=== PATIENT | female | born 1965 | race Caucasian/White ===

== ENCOUNTER → 2018-06-29 | Outpatient (CLI) | payer MEDICAID ==
--- NOTE | 2018-06-29 10:53 | Diagnostic Imaging Report ---
INDICATION: Routine screening. COMPARISON: No prior mammograms are available for comparison. TECHNIQUE: 2D and 3D bilateral screening mammography was performed with CAD. FINDINGS: Both breasts are heterogeneously dense, limiting the sensitivity of mammography. Circumscribed nodules are identified in both breasts, consistent with benign etiology. Occasional benign calcifications are noted. No spiculated mass or malignant appearing microcalcifications are seen. IMPRESSION: No mammographic features suspicious for malignancy are identified. ACR BI-RADS Category 2: Benign findings. Result letter will be mailed to the patient. Note: At least 10% of breast cancer is not imaged by mammography. Dictated by: Dictated on workstation # [id number]
== END ==
LOC: RAD 08:38
PROVIDERS: ATTEND Nurse Practitioner Primary Care
DX: Z12.31 Encounter for screening mammogram for malignant neoplasm of breast (principal)
CPT/HCPCS: 77067

== ENCOUNTER 2019-02-19 15:09 | Emergency (ER) | payer MEDICAID ==
[~2019-02-19] VITALS: Ht 175 cm; Wt 88.6 kg
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
[2019-02-19 16:43] VITALS: BP 136/84
== END 2019-02-19 16:45 | disposition home or self-care (01) ==
LOC: EDUNIT# 15:09 → ER 15:10
DX: S06.0X0A Concussion without loss of consciousness, initial encounter (principal); R40.2142 Coma scale, eyes open, spontaneous, at arrival to emergency department; R40.2252 Coma scale, best verbal response, oriented, at arrival to emergency department; R40.2362 Coma scale, best motor response, obeys commands, at arrival to emergency department; Z90.49 Acquired absence of other specified parts of digestive tract; W22.8XXA Striking against or struck by other objects, initial encounter
CPT/HCPCS: 99283

== ENCOUNTER 2020-02-27 14:12 | Emergency (ER) | payer MEDICAID ==
[~2020-02-27] VITALS: Ht 175 cm; Wt 90.0 kg
[2020-02-27] MEDS ORDERED: LISI-556 (14:49)
[2020-02-27] MEDS ORDERED: CETI-240 (14:49)
[2020-02-27] MEDS ORDERED: FLUO40CA (14:49)
[2020-02-27] MEDS ORDERED: ARIP5TAB57 (14:49)
[2020-02-27] MEDS ORDERED: ATOR40TA70 (14:49)
[2020-02-27] MEDS ORDERED: CYCL10TA9 (14:49)
[2020-02-27] MEDS ORDERED: FLUO20CA46 (14:49)
[2020-02-27] MEDS ORDERED: FAMO20TA5 (14:49)
[2020-02-27] MEDS ORDERED: CETI10TA17 (14:49)
--- NOTE | 2020-02-27 15:14 | ED Lower Extremity ---
General Chief Complaint: Lower Extremity Stated Complaint: L ANKLE INJ Nursing Triage Note: PT TO ED W/ C/O LT ANKLE PAIN ONSET AFTER STEPPING IN A HOLE IN HER YARD AT HOME. REPORTS SHE FELT A "POP". NO OTHER C/O VOICED. Nursing Sepsis Screen: No Definite Risk History of Present Illness Date Seen by Provider: Feb 27, 2020 Time Seen by Provider: 15:14 Initial Comments 54-year-old female presents to the emergency room with a chief complaint of left foot pain and some anesthesia over the lateral aspect and dorsum of her left foot. Patient states that she stepped in a hole and heard a snap or a pop in the area of her foot. She states she has had previous injury to this foot and ankle in the past. She has never required surgery. Patient also complains of a little bit of pain and discomfort over the lateral proximal fibular head. She states that it feels "numb". Patient states that when she fell she went forward on both of her knees and she is concerned that she might of broken something in her knee as well. All other review of systems reviewed and negative except as stated. Onset: just prior to arrival Pain/Injury Location: left leg Method of Injury: fell Allergies and Home Medications Allergies Coded Allergies: prednisone (Unverified Allergy, Unknown, 02/27/20) Patient Home Medication List Home Medication List Reviewed: Yes Review of Systems Constitutional: no symptoms reported EENTM: no symptoms reported Respiratory: no symptoms reported Cardiovascular: no symptoms reported Gastrointestinal: no symptoms reported Genitourinary: no symptoms reported : No Musculoskeletal: joint pain (pain in the bottom of the left foot and lateral aspect of the left knee) Skin: no symptoms reported All Other Systems Reviewed Negative Unless Noted: Yes Past Eypevdr-Zvmfxe-Xdkrwv Hx Patient Social History Alcohol Use: Denies Use Recreational Drug Use: No Smoking Status: Never a Smoker 2nd Hand Smoke Exposure: No Recent Foreign Travel: No Contact w/Someone Who Travel: No Recent Infectious Disease Expo: No Recent Hopitalizations: No Physical Abuse: No Sexual Abuse: No Mistreated: No Fear: No Seasonal Allergies Seasonal Allergies: No Past Medical History Surgeries: Yes (cervical spine, colonoscopy, wrist) Appendectomy, Gallbladder, Orthopedic Cardiac: Yes Heart Murmur Neurological: No Genitourinary: No Gastrointestinal: No Musculoskeletal: No Endocrine: No HEENT: No Cancer: No Psychosocial: No Integumentary: No Physical Exam Vital Signs Vital Signs - First Documented 02/27/20 14:17 Temp 36.8 Pulse 89 Resp 18 B/P (MAP) 151/95 (113) Pulse Ox 97 O2 Delivery Room Air Capillary Refill : Less Than 3 Seconds Height, Weight, BMI Height: '" Weight: lbs. oz. kg; 29.00 BMI Method: General Appearance: WD/WN, no apparent distress Neck: full range of motion Cardiovascular: regular rate, rhythm Respiratory: normal breath sounds, no respiratory distress, no accessory muscle use Hips: bilateral hip non-tender, bilateral hip normal inspection, bilateral hip normal range of motion, bilateral hip no evidence of injury Legs: right leg non-tender, right leg normal inspection, right leg normal range of motion, right leg no evidence of injury; left leg abrasions Knees: bilateral knee non-tender, bilateral knee normal inspection, bilateral knee normal range of motion, bilateral knee no evidence of injury Ankles: bilateral ankle non-tender, bilateral ankle normal inspection, bilateral ankle normal range of motion, bilateral ankle no evidence of injury Feet: left foot bone tenderness (Patient has pain and tenderness to palpation in the area of the base of the fifth metatarsal. She has overlying swelling.), left foot limited range of motion Neurologic/Tendon: normal sensation, normal motor functions, normal tendon functions Neurologic/Psychiatric: no motor/sensory deficits, alert, normal mood/affect, oriented x 3 Skin: normal color, warm/dry Progress/Results/Core Measures Results/Orders My Orders Orders - SEAN PIZANO MD Foot, Left, 3 Views (02/27/20 15:14) Knee, Left, 3 Views (02/27/20 16:16) Vital Signs/I&O 02/27/20 02/27/20 14:17 17:20 Temp 36.8 Pulse 89 0 Resp 18 0 B/P (MAP) 151/95 (113) 0/0 Pulse Ox 97 0 O2 Delivery Room Air Blood Pressure Mean: 113 Progress Progress Note : Time: 16:44 Progress Note 54-year-old female presents to the emergency department today with a chief complaint of left foot pain after stepping in a hole. 3 views of the left foot as well as the left knee were obtained. Radiology reads these as negative. However secondary to the pain at the base of her fifth metatarsal I am going to go ahead and put her in a Reinoso dressing and make her toe-touch weightbearing as tolerated and follow her up with orthopedics. The patient is comfortable with this plan of care she verbalized understanding of the discharge instructions and is stable for discharge Diagnostic Imaging Diagonstic Imaging: Xray Plain Films/CT/US/NM/MRI: other Comments [facility] [employer] [place], [place] NAME: BRUCE SAUCEDO [facility] REC#: [id number] PT STATUS: REG ER : 1965 PHYSICIAN: SEAN PIZANO MD ADMIT DATE: 02/27/20/ER Draft Date of Exam:02/27/20 FOOT, LEFT, 3 VIEWS INDICATION: Pain status post injury. COMPARISON: None. FINDINGS: Three views of the left foot demonstrate no acute fracture or dislocation. There are no focal osseous lesions. There is no soft tissue swelling. Joint spaces are well maintained. Triangular-shaped radiopaque foreign body is seen projecting over the plantar soft tissues of the proximal great toe. IMPRESSION: 1. No acute fractures or dislocations of the left foot. 2. Radiopaque foreign body projecting over the great toe as above. This could represent small shard of glass. Clinical correlation is recommended. Dictated on workstation # [id number] Dict: 02/27/20 1610 Trans: 02/27/20 161 [facility] [id number] Interpreted by: ENEDINA JERONIMO MD Electronically signed by: [facility] [employer] [place], [place] NAME: BRUCE SAUCEDO [facility] REC#: [id number] PT STATUS: REG ER : 1965 PHYSICIAN: SEAN PIZANO MD ADMIT DATE: 02/27/20/ER Draft Date of Exam:02/27/20 KNEE, LEFT, 3 VIEWS INDICATION: Knee pain status post injury. COMPARISON: None. FINDINGS: Three views of the left knee joint demonstrate no acute fracture or dislocation. No focal osseous lesions are seen. No significant joint effusion is seen. The surrounding soft tissue structures are unremarkable. There are no radiopaque foreign bodies. IMPRESSION: 1. No acute fractures or dislocations of the left knee joint. Dictated on workstation # [id number] Dict: 02/27/20 1624 Trans: 02/27/20 1628 [facility] [id number] Interpreted by: ENEDINA JERONIMO Departure Impression Primary Impression: Contusion of foot Qualified Codes: S90.32XA - Contusion of left foot, initial encounter Additional Impression: Foot pain, left Disposition: 01 HOME, SELF-CARE Condition: Stable Departure-Patient Inst. Decision time for Depature: 16:48 Referrals: [facility] (PCP/Family) Primary Care Physician FREDA MARTINEZ MD Patient Instructions: Foot Fracture (DC) Add. Discharge Instructions: Elevate your foot to decrease the swelling. You can take [id number] ibuprofen or Tylenol as needed for pain and swelling. Keep the dressing in place until you follow-up with Dr. MARTINEZ with orthopedics. Please use the crutches with toe-touch weightbearing as tolerated. Return to the emergency department for any new, worsening concerns or symptoms. All discharge instructions reviewed with patient and/or family. Voiced understanding. Copy Copies To 1: FREDA MARTINEZ MD, KATHRYN M MD Feb 27, 2020 15:14
--- NOTE | 2020-02-27 16:13 | Diagnostic Imaging Report ---
INDICATION: Pain status post injury. COMPARISON: None. FINDINGS: Three views of the left foot demonstrate no acute fracture or dislocation. There are no focal osseous lesions. There is no soft tissue swelling. Joint spaces are well maintained. Triangular-shaped radiopaque foreign body is seen projecting over the plantar soft tissues of the proximal great toe. IMPRESSION: 1. No acute fractures or dislocations of the left foot. 2. Radiopaque foreign body projecting over the great toe as above. This could represent small shard of glass. Clinical correlation is recommended. Dictated by: Dictated on workstation # [id number]
--- NOTE | 2020-02-27 16:28 | Diagnostic Imaging Report ---
INDICATION: Knee pain status post injury. COMPARISON: None. FINDINGS: Three views of the left knee joint demonstrate no acute fracture or dislocation. No focal osseous lesions are seen. No significant joint effusion is seen. The surrounding soft tissue structures are unremarkable. There are no radiopaque foreign bodies. IMPRESSION: 1. No acute fractures or dislocations of the left knee joint. Dictated by: Dictated on workstation # [id number]
[2020-02-27 17:20] VITALS: BP 0/0
--- NOTE | 2020-02-27 17:20 | NUR ---
PT DISCHARGED TO HOME BY MARCY STEVENS.
== END 2020-02-27 17:26 | disposition home or self-care (01) ==
LOC: EDUNIT# 14:12 → ER 14:14
DX: S90.32XA Contusion of left foot, initial encounter (principal); Z88.8 Allergy status to other drugs, medicaments and biological substances; W18.42XA Slipping, tripping and stumbling without falling due to stepping into hole or opening, initial encounter
CPT/HCPCS: 73562; 73630

== ENCOUNTER 2020-04-03 14:47 | Emergency (ER) | payer MEDICAID ==
[~2020-04-03] VITALS: Ht 175 cm; Wt 102.0 kg
[~2020-04-03 14:47] MED LIST: ARIP5TAB57; ATOR40TA70; CETI-240; CETI10TA17; CYCL10TA9; FAMO20TA5; FLUO20CA46; FLUO40CA; LISI-556
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
[2020-04-03] MEDS ORDERED: METH4TAB10 PO (15:19)
[2020-04-03 15:28] VITALS: BP 182/85
== END 2020-04-03 15:28 | disposition home or self-care (01) ==
LOC: EDUNIT# 14:47 → ER 14:48
DX: G51.0 Bell's palsy (principal); Z88.8 Allergy status to other drugs, medicaments and biological substances
CPT/HCPCS: 99283

== ENCOUNTER 2020-05-25 12:24 | Emergency (ER) | payer MEDICAID ==
[~2020-05-25] VITALS: Ht 175 cm; Wt 94.8 kg
[~2020-05-25 12:24] MED LIST changes: +METH4TAB10 PO
[2020-05-25] MEDS ORDERED: HOLD METFORMIN - RECEIVED CONTRAST 20 ML VIAL IV SCH (13:30)
[2020-05-25] MEDS ORDERED: IOHEXOL 350 MG/ML 100 ML (OMNIPAQUE 350) VIAL IV ONE (13:30)
[2020-05-25] MEDS ORDERED: NS 100 ML (IVPB) BAG IV ONE (13:30)
[2020-05-25 13:34] LABS: BASOPHILS # (AUTO) 0.1 10^3/uL (0.0-0.1); BASOPHILS % (AUTO) 1 % (0-10); EOSINOPHILS # (AUTO) 0.2 10^3/uL (0.0-0.3); EOSINOPHILS % (AUTO) 2 % (0-10); HEMATOCRIT 44 % (35-52); HEMOGLOBIN 14.9 g/dL (11.5-16.0); LYMPHOCYTES # (AUTO) 2.3 10^3/uL (1.0-4.0); LYMPHOCYTES % (AUTO) 24 % (12-44); MEAN CORPUSCULAR HEMOGLOBIN 32 pg (25-34); MEAN CORPUSCULAR HGB CONC 34 g/dL (32-36); MEAN CORPUSCULAR VOLUME 96 fL (80-99); MEAN PLATELET VOLUME 9.3 fL (9.0-12.2); MONOCYTES # (AUTO) 0.7 10^3/uL (0.0-1.0); MONOCYTES % (AUTO) 7 % (0-12); NEUTROPHILS # (AUTO) 6.5 10^3/uL (1.8-7.8); NEUTROPHILS % (AUTO) 66 % (42-75); PLATELET COUNT 345 10^3/uL (130-400); WHITE BLOOD COUNT 9.8 10^3/uL (4.3-11.0)
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
[2020-05-25 13:47] LABS: ALBUMIN 4.5 GM/DL (3.2-4.5)
[2020-05-25 13:48] LABS: CHLORIDE 104 MMOL/L (98-107); POTASSIUM 4.6 MMOL/L (3.6-5.0); SODIUM 136 MMOL/L (135-145)
[2020-05-25 13:49] LABS: CALCIUM 9.6 MG/DL (8.5-10.1)
[2020-05-25 13:50] LABS: GLUCOSE 108 MG/DL (70-105); TOTAL PROTEIN 8.5 GM/DL (6.4-8.2)
[2020-05-25 13:51] LABS: CARBON DIOXIDE 22 MMOL/L (21-32)
[2020-05-25 13:52] LABS: BILIRUBIN,TOTAL 0.4 MG/DL (0.1-1.0)
[2020-05-25 13:53] LABS: ALKALINE PHOSPHATASE 125 U/L (40-136); CREATININE SERUM 0.78 MG/DL (0.60-1.30); GFR ESTIMATED > 60
--- NOTE | 2020-05-25 13:54 | Diagnostic Imaging Report ---
EXAMINATION: CT head without contrast. TECHNIQUE: Multiple contiguous axial images were obtained through the brain without the use of intravenous contrast. All CT scans use one or more of the following dose optimizing techniques: automated exposure control, MA and/or KvP adjustment based on a patient size and exam type, or iterative reconstruction. HISTORY: Headache. Blurry vision. Left-sided numbness. Concern for stroke. COMPARISON: None available. FINDINGS: No large acute territorial ischemia, mass, or hemorrhage. No midline shift or mass effect. The ventricles, cortical sulci, and basilar cisterns are patent and unremarkable. The orbits are normal. Paranasal sinuses are normal. Mastoid air cells are clear. No soft tissue abnormality is seen. No osseous lesions or fractures are seen. IMPRESSION: 1. No large acute territorial ischemia, mass, or hemorrhage. Dictated by: Dictated on workstation # [id number]
[2020-05-25 13:55] LABS: BUN/CREATININE RATIO 17
[2020-05-25 13:56] LABS: ALANINE AMINOTRANSFERASE 55 U/L (0-55)
--- NOTE | 2020-05-25 14:03 | Diagnostic Imaging Report ---
EXAMINATION: Chest, 1 view. HISTORY: Stroke protocol. COMPARISON: None available. FINDINGS: The heart size and pulmonary vasculature are normal. The lungs are clear without consolidation, pleural effusion, or pneumothorax. The osseous structures are intact. Partially visualized cervical fusion hardware is present. IMPRESSION: No acute radiographic abnormality in the chest. Dictated by: Dictated on workstation # [id number]
[2020-05-25 14:06] LABS: FIBRIN DEGRADATION PRODUCTS < 0.27 UG/ML (0.00-0.49); INR 0.9 (0.8-1.4); PARTIAL THROMBOPLASTIN TIME 26 SEC (24-35); PROTHROMBIN TIME PATIENT 12.9 SEC (12.2-14.7)
--- NOTE | 2020-05-25 14:17 | Diagnostic Imaging Report ---
PROCEDURE: CT angiography of the head and CT angiography of the neck with and without contrast. TECHNIQUE: Contiguous noncontrast images were obtained from the skull base through the vertex. After intravenous contrast administration, helical CT angiography of the neck was performed. Source data was reformatted into 3D MIP projections. Delayed post contrast acquisition was also obtained. Auto Exposure Controls were utilized during the CT exam to meet ALARA standards for radiation dose reduction. INDICATION: Left-sided numbness, headache, and blurred vision. COMPARISON: Correlation is made with head CT performed earlier the same day. FINDINGS: Delayed post contrast images are without abnormal enhancing lesion. CT angiographic portion of the study demonstrates a normal three-vessel branching pattern to the aortic arch. Both common carotid arteries appear to be widely patent. Carotid bifurcations are unremarkable. The right internal carotid artery and carotid siphon are unremarkable. Left internal carotid artery and left carotid siphon are unremarkable. The M1 and M2 segments of the middle cerebral arteries bilaterally appear to be patent. No large territorial occlusion is detected. The right and left anterior cerebral arteries appear to be patent. Right and left posterior cerebral arteries are patent. The basilar artery is patent. The left vertebral artery is dominant. The right vertebral artery is very small but both vertebral arteries do appear to be patent. IMPRESSION: Unremarkable CT angiogram of the head and neck. No thromboembolism or large branch occlusion is identified. Dictated by: Dictated on workstation # [id number]
[2020-05-25] MEDS ORDERED: NS IV 500 ML 500 ML IV ONE (15:15)
[2020-05-25] MEDS ORDERED: KETOROLAC 30 MG/ML VIAL IVP ONE (15:15)
[2020-05-25 16:20] VITALS: BP 107/69
== END 2020-05-25 16:20 | disposition home or self-care (01) ==
LOC: EDUNIT# 12:24 → ER 12:26
DX: R51.9 Headache, unspecified (principal); R20.0 Anesthesia of skin; H53.9 Unspecified visual disturbance; Z77.22 Contact with and (suspected) exposure to environmental tobacco smoke (acute) (chronic); Z88.8 Allergy status to other drugs, medicaments and biological substances; Z20.828 Contact with and (suspected) exposure to other viral communicable diseases; Z79.52 Long term (current) use of systemic steroids
CPT/HCPCS: 70450; 70496; 70498; 71045; 80053; 84484; 84703; 85025; 85379; 85610; 85730; 93005; 93041; 99284; U0002; 36415; 87635

== ENCOUNTER 2020-11-26 06:34 | Outpatient (CLI) | payer MEDICAID ==
[~2020-11-26] VITALS: Ht 175.3 cm; Wt 101.9 kg
[~2020-11-26 06:34] MED LIST changes: -LISI-556; +LISI-729
[2020-11-30] MEDS ORDERED: LISI1TAB29 PO (14:20)
[2020-11-30] MEDS ORDERED: MAGN400T39 PO (14:20)
[2020-11-30] MEDS ORDERED: ARIP10TA55 PO (14:20)
[2020-11-30] MEDS ORDERED: BUPR150T24 PO (14:20)
[2020-11-30] MEDS ORDERED: CELE-63 PO (14:20)
== END 2020-11-30 15:14 | disposition home or self-care (01) ==
LOC: PREOP 06:34
PROVIDERS: ATTEND Surgery
DX: Z01.818 Encounter for other preprocedural examination (principal)

== ENCOUNTER 2020-12-01 19:43 | Emergency (ER) | payer MEDICAID ==
[~2020-12-01] VITALS: Ht 175.2 cm; Wt 100.0 kg
[~2020-12-01 19:43] MED LIST changes: +ARIP10TA55 PO; +BUPR150T24 PO; +CELE-63 PO; +LISI1TAB29 PO; +MAGN400T39 PO
[2020-12-01 20:38] VITALS: BP 147/95
--- NOTE | 2020-12-01 20:44 | ED Lower Extremity ---
General Chief Complaint: Lower Extremity Stated Complaint: L FOOT INJURY Source: patient Exam Limitations: no limitations History of Present Illness Date Seen by Provider: Dec 01, 2020 Time Seen by Provider: 20:43 Initial Comments To ER with left lateral foot and ankle pain after she twisted it while getting out of the van earlier this afternoon. Onset: just prior to arrival Severity: moderate Pain/Injury Location: left foot Method of Injury: twisted Modifying Factors: Improves With Movement Allergies and Home Medications Allergies Coded Allergies: prednisone (Unverified Adverse Reaction, Unknown, 04/03/20) makes her 'angry' Home Medications Aripiprazole 10 Mg Tablet, 10 MG PO DAILY, (Reported) Bupropion HCl 150 Mg Tab.er.24h, 150 MG PO DAILY, (Reported) Celecoxib 200 Mg Capsule, 200 MG PO DAILY, (Reported) Lisinopril/Hydrochlorothiazide 1 Each Tablet, 1 EACH PO DAILY, (Reported) Magnesium Oxide 400 Mg Tablet, 400 MG PO DAILY, (Reported) Patient Home Medication List Home Medication List Reviewed: Yes Review of Systems Constitutional: see HPI EENTM: see HPI Respiratory: no symptoms reported Cardiovascular: no symptoms reported Genitourinary: no symptoms reported Musculoskeletal: see HPI Skin: no symptoms reported Psychiatric/Neurological: No Symptoms Reported Past Sbjrphv-Yzplkp-Pyklhw Hx Seasonal Allergies Seasonal Allergies: No Past Medical History Surgeries: Yes (cervical spine, colonoscopy, wrist) Appendectomy, Gallbladder, Orthopedic Respiratory: No Cardiac: Yes Heart Murmur, Hypertension Neurological: No (bells palsy) Genitourinary: No Gastrointestinal: No Musculoskeletal: Yes Chronic Back Pain Endocrine: No HEENT: No Cancer: No Psychosocial: Yes Anxiety, Depression Integumentary: No Physical Exam Vital Signs Capillary Refill : Height, Weight, BMI Height: '" Weight: lbs. oz. kg; 30.00 BMI Method: General Appearance: WD/WN, no apparent distress HEENT: PERRL/EOMI, normal ENT inspection Respiratory: no respiratory distress, no accessory muscle use Hips: bilateral hip non-tender, bilateral hip normal inspection, bilateral hip normal range of motion Legs: bilateral leg non-tender, bilateral leg normal inspection, bilateral leg normal range of motion Knees: bilateral knee non-tender, bilateral knee normal inspection, bilateral knee normal range of motion Ankles: left ankle pain, left ankle soft tissue tenderness, left ankle swelling Feet: left foot pain, left foot soft tissue tenderness, left foot swelling Neurologic/Psychiatric: alert, normal mood/affect, oriented x 3 Skin: normal color, warm/dry Progress/Results/Core Measures Results/Orders My Orders Orders - FLAKITA KING APRN Ankle, Left, 3 Views (12/01/20 20:42) Foot, Left, 3 Views (12/01/20 20:42) Departure Communication (Admissions) 2140-already has her own crutches. We will give her an Luis A wrap and discharge. Impression Primary Impression: Sprain and strain of ankle Disposition: 01 HOME, SELF-CARE Condition: Stable Departure-Patient Inst. Decision time for Depature: 21:23 Referrals: [facility] (PCP/Family) Primary Care Physician Patient Instructions: Ankle Sprain ED FLAKITA KING APRN Dec 01, 2020 20:44
--- NOTE | 2020-12-01 21:15 | Diagnostic Imaging Report ---
EXAMINATION: Left foot radiographs, 3 views. COMPARISON: February 27, 2020. HISTORY: Left foot and ankle pain after injury. FINDINGS: There is a radiopaque foreign body volarly located at the level of the first proximal phalanx unchanged since February 27, 2020. There is degenerative type calcaneal enthesopathy. There is degenerative type enthesopathy involving the dorsal aspect of the midfoot. There is no identified new radiopaque foreign body. 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 There is a small normal variant os navicularis. There is degenerative type enthesopathy at the insertion of the peroneus brevis. There is no identified acute fracture. IMPRESSION: 1. No identified acute bony abnormality of the left foot. Dictated by: Dictated on workstation # [id number]
--- NOTE | 2020-12-01 21:16 | Diagnostic Imaging Report ---
EXAMINATION: Left ankle radiographs, 3 views. COMPARISON: None. HISTORY: 55-year-old female, injury. Left foot and ankle pain. FINDINGS: There is degenerative type calcaneal enthesopathy and degenerative type enthesopathy at the dorsal aspect of the midfoot. The alignment of the ankle mortise is unremarkable. There is some productive bone formation in the region of the medial malleolus which may relate to sequela of prior injury. There is no identified acute fracture. IMPRESSION: No identified acute bony abnormality of the left foot. Dictated by: Dictated on workstation # [id number]
== END 2020-12-01 21:45 | disposition home or self-care (01) ==
LOC: EDUNIT# 19:43 → ER 19:45
DX: S93.402A Sprain of unspecified ligament of left ankle, initial encounter (principal); I10 Essential (primary) hypertension; G89.29 Other chronic pain; M54.9 Dorsalgia, unspecified; F41.9 Anxiety disorder, unspecified; F32.9 Major depressive disorder, single episode, unspecified; Z79.1 Long term (current) use of non-steroidal anti-inflammatories (NSAID); Z79.899 Other long term (current) drug therapy; X50.1XXA Overexertion from prolonged static or awkward postures, initial encounter
CPT/HCPCS: 73610; 73630

== ENCOUNTER 2020-12-03 13:23 | Day surgery (SDC) | payer MEDICAID ==
[~2020-12-03] VITALS: Ht 175.3 cm; Wt 100.0 kg
[2020-12-03] MEDS ORDERED: LACTATED RINGERS 1,000 ML IV STA (13:29)
[2020-12-03] MEDS ORDERED: LACTATED RINGERS 1,000 ML IV ONE (13:32)
[2020-12-03 13:52] VITALS: BP 154/100
[2020-12-03] MEDS ORDERED: proPOfol 200 MG/20 ML (DIPRIVAN) VIAL IV ONE (14:11)
[2020-12-03] MEDS ORDERED: MIDAZOLAM 2 MG/2 ML (VERSED) VIAL ONE (14:11)
--- NOTE | 2020-12-03 14:20 | Progress Note-Pre Operative ---
Pre-Operative Progress Note H&P Reviewed The H&P was reviewed, patient examined and no changes noted. Date Seen by Provider: Dec 03, 2020 Time Seen by Provider: 14:19 Date H&P Reviewed: Dec 03, 2020 Time H&P Reviewed: 14:19 Pre-Operative Diagnosis: screening colonoscopy THANH LEONE DO Dec 03, 2020 14:20
[2020-12-03] MEDS ORDERED: ESMOLOL 100 MG/10 ML (BREVIBLOC) VIAL ONE (14:40)
[2020-12-03 15:05] VITALS: BP_SYST 139; BP_SYST 145; BP_DIAS 60; BP_DIAS 75
--- NOTE | 2020-12-03 15:30 | Discharge Inst-Simple/Standard ---
Discharge Inst-Standard Patient Instructions/Follow Up Plan of Care/Instructions/FU: Follow up with your primary care provider in next 2 weeks for heart arrythmia. Daphney in 10 years for repeat colonoscopy, or 5 years if family history of colon cancer. If any issues before then be seen at that time. Activity as Tolerated: Yes Discharge Diet: Regular Diet THANH LEONE DO Dec 03, 2020 15:30
[2020-12-03 15:40] VITALS: BP 139/75
--- NOTE | 2020-12-03 19:04 | OPERATIVE REPORT ---
DATE OF SERVICE: 12/03/2020 PREOPERATIVE DIAGNOSIS: Screening colonoscopy. POSTOPERATIVE DIAGNOSIS: Normal colon. PROCEDURE PERFORMED: Colonoscopy. SURGEON: Thanh Shelley DO. ANESTHESIA: Per MDA. ESTIMATED BLOOD LOSS: None. COMPLICATIONS: None. INDICATIONS FOR PROCEDURE: The patient is a 55-year-old female needing screening colonoscopy. She understands the risks and benefits of the procedure and wished to proceed with the procedure. Consent was signed in the chart. DESCRIPTION OF PROCEDURE: The patient was taken to the endoscopy suite and placed in the left lateral recumbent position. A timeout was performed. The patient was having sinus rhythm with PACs/PSVTs, which did get better control with esmolol, so we proceeded. A digital rectal exam was performed. There were no palpable polyps, masses or ulcerations. Scope was inserted in the rectum, advanced all the way to cecum with minimal difficulty. Prep was adequate. Scope was then slowly retracted back. There were no polyps, masses or ulcerations within the cecum, ascending, transverse, descending and sigmoid colon. Once in the rectum, scope was retroflexed noting some internal hemorrhoids. No other pathology. Scope was returned to its normal position, slowly withdrawn until completely removed. The patient tolerated the procedure well without any complications. She was taken to the recovery room in stable condition. RECOMMENDATIONS: The patient will need repeat colonoscopy in 10 years. Any issues before that be seen at that time. If she has family history of colon cancer or personal history of colon polyps, she should have repeat colonoscopy in five years. The patient was found on 3-lead that, she was in sinus rhythm with times of PACs/PSVTs. We would recommend arranging with her primary care provider to be seen in the next 2 weeks. We will consider cardiology consultation. We will also get a 12-lead EKG here. Job ID: [id number] DocumentID: [id number] Dictated Date: 12/03/2020 15:36:36 [employer] Plant Site Manager Date: 12/03/2020 19:04:36 Dictated By: THANH SHELLEY DO
== END 2020-12-03 15:40 | disposition home or self-care (01) ==
LOC: ENDO 13:23
PROVIDERS: ATTEND Surgery
DX: Z12.11 Encounter for screening for malignant neoplasm of colon (principal); K64.8 Other hemorrhoids; I10 Essential (primary) hypertension; G51.0 Bell's palsy; J30.1 Allergic rhinitis due to pollen; F32.9 Major depressive disorder, single episode, unspecified; F41.9 Anxiety disorder, unspecified; Z90.49 Acquired absence of other specified parts of digestive tract; Z79.899 Other long term (current) drug therapy; Z90.89 Acquired absence of other organs; Z83.3 Family history of diabetes mellitus
CPT/HCPCS: 36415; 84703

== ENCOUNTER → 2021-01-28 | Outpatient (CLI) | payer MEDICAID ==
[2021-01-28 14:35] LABS: HEMATOCRIT 43 % (35-52); HEMOGLOBIN 14.7 g/dL (11.5-16.0); MEAN CORPUSCULAR HEMOGLOBIN 33 pg (25-34); MEAN CORPUSCULAR HGB CONC 34 g/dL (32-36); MEAN CORPUSCULAR VOLUME 96 fL (80-99); MEAN PLATELET VOLUME 9.3 fL (9.0-12.2); PLATELET COUNT 382 10^3/uL (130-400); WHITE BLOOD COUNT 7.9 10^3/uL (4.3-11.0)
[2021-01-28 15:14] LABS: ALBUMIN 4.4 GM/DL (3.2-4.5); BILIRUBIN,TOTAL 0.6 MG/DL (0.1-1.0); CALCIUM 9.7 MG/DL (8.5-10.1); CREATININE SERUM 0.86 MG/DL (0.60-1.30); POTASSIUM 3.7 MMOL/L (3.6-5.0)
== END ==
LOC: LAB 13:37
PROVIDERS: ATTEND Internal Medicine Cardiovascular Disease
DX: E78.2 Mixed hyperlipidemia (principal); R00.2 Palpitations
CPT/HCPCS: 36415; 80053; 80061; 84443; 85027

== ENCOUNTER → 2021-03-08 | Outpatient (CLI) | payer MEDICAID ==
[~2021-03-08] MED LIST changes: +meTOprolol 5 MG/5 ML (LOPRESSOR) VIAL IV ONE; +meTOprolol 5 MG/5 ML (LOPRESSOR) VIAL ONE
[2021-03-08 10:22] VITALS: BP 144/88
[2021-03-08 10:26] VITALS: BP 139/91
--- NOTE | 2021-03-08 11:10 | Cardiology Stress Test Report ---
Stress Test Report Date of Procedure/Referring: Date of Procedure: Mar 08, 2021 PCP Caty Solis MD Admitting Physician Center/[facility] Indications: Palpitation Baseline Heart Rate: 170 Baseline Blood Pressure: Blood Pressure Systolic: 139 Blood Pressure Diastolic: 91 Summary/Conclusion: Summary: Patient was scheduled for exercise stress test today, on arrival she was noted to have heart rate 170 at rest. She has underlying sinus rhythm on baseline, felt that she was having palpitations since this morning. Baseline EKG showed heart rate 170, narrow complex with variation in the rate suggestive of underlying atrial fibrillation or type III atrial flutter. On Valsalva maneuver patient converted to sinus rhythm. Return back to SVT with a regular rhythm again converted with Valsalva maneuver and started to have multiple short paroxysmal atrial tachycardia for 3-4 beats and occasional PVCs. No acute EKG changes suggestive of ischemia She was given 5 mg of IV Lopressor which stabilized her underlying rhythm. Test was terminated. Conclusion 1. Paroxysmal atrial fibrillation/flutter, noted at rest, patient was unable to exercise due to tachycardia. Converted on Valsalva maneuver then had 5 mg of IV Lopressor. 2. Patient was started on amiodarone 400 mg twice daily for 1 week then 200 mg twice daily 3. [id number] score 2, yearly risk of stroke without oral anticoagulation is 2.2%. Started on Eliquis 4. I am planning to evaluate Lexiscan stress test for possible switching her to class III antiarrhythmic medication CATY SOLIS MD Mar 08, 2021 11:10
== END ==
LOC: CARD 09:30
PROVIDERS: ATTEND Internal Medicine Cardiovascular Disease
DX: I49.9 Cardiac arrhythmia, unspecified (principal); I10 Essential (primary) hypertension; I25.10 Atherosclerotic heart disease of native coronary artery without angina pectoris
CPT/HCPCS: 93017; 93225; 93226; 93306

== ENCOUNTER → 2021-03-10 | Outpatient (CLI) | payer MEDICAID ==
[~2021-03-10] MED LIST changes: +AMIO200T6 PO; +APIX5TAB PO; +CATHETER FLUSH 10 ML SYR IV PRN; +METO-352 PO; +MTP25TSR PO; +MV-M1CAP15 PO; +NS IV 1000 ML 1,000 ML IV SCH; +NS IV 1000 ML 1,000 ML ONE; +OMEG-160 PO; +REGADENOSON 0.4 MG/5 ML SYR (LEXISCAN) IV ONE
[2021-03-10 13:30] VITALS: BP 144/95
--- NOTE | 2021-03-10 15:36 | Cardiology Stress Test Report ---
Stress Test Report Date of Procedure/Referring: Date of Procedure: Mar 10, 2021 Tisha Mo Admitting Physician Center/[facility] Indications: SVT Baseline Heart Rate: 86 Baseline Blood Pressure: Blood Pressure Systolic: 144 Blood Pressure Diastolic: 95 Baseline Vitals Vital Signs Date Time Temp Pulse Resp B/P (MAP) Pulse Ox O2 Delivery O2 Flow Rate FiO2 03/10/21 13:30 86 144/95 (111) Baseline EKG: Baseline EKG: NSR Summary After explaining the procedure to the patient, she signed a consent and then brought to the stress nuclear laboratory. Patient received 0.4 mg Lexiscan for stress test, ECG, heart rate and blood pressure were monitored continuously. Resting and stress dose of radio tracer were injected, imaging was acquired and reviewed in short axis, horizontal long axis and vertical long axis views. TID: 0.94 SSS: 10 SDS: 5 EF: 54 1. Patient tolerated Lexiscan well 2. Multiple episodes of paroxysmal atrial tachycardia with a rate up to 170, questionable short runs of atrial fibrillation with RVR. Patient had one short episode of wide-complex tachycardia for a total of 8 beats of nonsustained ventricular tachycardia. 3. Reversible ischemia involving the anterior wall and anterior septum 4. Normal left ventricular size, EF 54% CATY BLOUNT MD Mar 10, 2021 15:36
== END ==
LOC: CARD 12:45
PROVIDERS: ATTEND Physician Assistant
DX: I47.1 Supraventricular tachycardia (principal); I25.89 Other forms of chronic ischemic heart disease
CPT/HCPCS: 78452; 93017; A9502

== ENCOUNTER 2021-03-15 08:00 | Day surgery (SDC) | payer MEDICAID ==
[2021-03-15] VITALS (9 sets, daily range): BP systolic 129–166; BP diastolic 70–81
[~2021-03-15] VITALS: Ht 175 cm; Wt 96.0 kg
[2021-03-15 07:22] LABS: HEMATOCRIT 42 % (35-52); HEMOGLOBIN 14.1 g/dL (11.5-16.0); MEAN CORPUSCULAR HEMOGLOBIN 33 pg (25-34); MEAN CORPUSCULAR HGB CONC 34 g/dL (32-36); MEAN CORPUSCULAR VOLUME 98 fL (80-99); PLATELET COUNT 335 10^3/uL (130-400); WHITE BLOOD COUNT 12.5 10^3/uL (4.3-11.0)
[2021-03-15 07:36] LABS: INR 0.9 (0.8-1.4)
[2021-03-15 07:45] LABS: ALBUMIN 4.2 GM/DL (3.2-4.5); BILIRUBIN,TOTAL 0.4 MG/DL (0.1-1.0); CALCIUM 9.3 MG/DL (8.5-10.1); CREATININE SERUM 0.93 MG/DL (0.60-1.30); POTASSIUM 4.2 MMOL/L (3.6-5.0); TOTAL PROTEIN 7.9 GM/DL (6.4-8.2)
--- NOTE | 2021-03-15 07:46 | Diagnostic Imaging Report ---
INDICATION: Coronary artery disease COMPARISON: 05/25/2020 FINDINGS: Single view of the chest demonstrates clear lungs bilaterally. Heart is normal. There is no pneumothorax. There is a stable benign nodule in the right upper lobe. Osseous structures are age-appropriate. IMPRESSION: Negative chest Dictated by: Dictated on workstation # [id number]
[~2021-03-15 08:00] MED LIST changes: -CATHETER FLUSH 10 ML SYR IV PRN; +HEParin (CATH LAB) 2,000 ML IV ONE; +LIDOCAINE 1% INJ 20 ML 20 ML VIAL ONE; -METO-352 PO; -REGADENOSON 0.4 MG/5 ML SYR (LEXISCAN) IV ONE; -meTOprolol 5 MG/5 ML (LOPRESSOR) VIAL IV ONE; -meTOprolol 5 MG/5 ML (LOPRESSOR) VIAL ONE
[2021-03-15] MEDS ORDERED: VERAPAMIL 5 MG/2 ML (CALAN) VIAL IV ONE (08:03)
[2021-03-15] MEDS ORDERED: fentaNYL INJ 100 MCG/2 ML AMP ONE (08:03)
[2021-03-15] MEDS ORDERED: MIDAZOLAM 5 MG/5 ML (VERSED) VIAL ONE (08:04)
[2021-03-15] MEDS ORDERED: NITRO DRIP 25000 MCG/D5W 0 ML IV ONE (08:04)
[2021-03-15] MEDS ORDERED: HEParin 1000 UNIT/ML (10ML VIAL) FOR BOLUS ONE (08:04)
--- NOTE | 2021-03-15 09:03 | Conscious Sedation/ASA ---
Conscious Sedation Pre-Proced Time 09:02 ASA Score 3 For ASA 3 and 4: Consider anesthesia and medical clearance. Also, for patients with a history of failed moderate sedation consider anesthesia. Airway Lungs Heart ASA score ASA 1: a normal healthy patient ASA 2: a patient with a mild systemic disease (mid diabetes, controlled hypertension, obesity x ASA 3: a patient with a severe systemic disease that limits activity (angina, COPD, prior Myocardial infarction) ASA 4: a patient with an incapacitating disease that is a constant threat to life (CHF, renal failure) ASA 5: a moribund patient not expected to survive 24 hrs. (ruptured aneurysm) ASA 6: a declared brain- patient whose organs are being harvested. For emergent operations, add the letter E after the classification Mallampati Classification Grade 3 Sedation Plan Analgesia, Amnesia, Plan communicated to team members, Discussed options with patient/fam, Discussed risks with patient/fam The patient is an appropriate candidate to undergo the planned procedure, sedation, and anesthesia. The patient immediately re-assessed prior to indication. CATY BLOUNT MD Mar 15, 2021 09:03
[2021-03-15] MEDS ORDERED: METO-352 PO (09:41)
--- NOTE | 2021-03-15 09:42 | Discharge Inst-Post CATH ---
Discharge Inst-CATH/EP Problems Reviewed?: Yes Post Cardiac Cath/EP D/C Inst Follow Up/Plan Appointment with Dr. Solis's office in 2 to 4 weeks <b>CARDIAC CATH/EP PROCEDURE DISCHARGE INSTRUCTIONS</b> ACTIVITY * Go Home directly and rest. * Limit activity of the leg (or wrist if it was used) for 7 days including aer obics, swimming, jogging, bicycling, etc. * Restrict stair-climbing for 7 days if possible, if not, climb up with your non-cath leg, then bring together on the same step. * Avoid lifting, pushing, pulling or excessive movement of the affected extremi ty for 7 days. * Customary sexual activity may be resumed after 2 days-use caution not to use a position that strains or causes pain to the affected extremity. * No driving for 24 hours. * NO SMOKING. * Avoid straining for bowel movements for 7 days. * Gentle walking on level ground is allowed. * Returning to work will depend on the type of procedure and the results. Your doctor will discuss this with you. CALL YOUR DOCTOR FOR ANY OF THE FOLLOWING: *If bleeding from the puncture site occurs- Apply gentle pressure to site with clean cloth and call your doctor or EMS. * If a knot or lump forms under the skin, increases in size, or causes pain. * If bruising appears to be worsening or moving further down your leg instead of disappearing. * Temperature above 101 F. CARE OF YOUR GROIN INCISION; * Bruising or purple discoloration of the skin near the puncture site is common. * You may shower only, no bathtub bathing for 5 days. Be careful to avoid slipping as your leg may feel stiff. * If a closure device was used on your femoral artery, please see the attached guide regarding care of the device and your leg. * Leave dressing on FOR 24 hours. CARE OF YOUR WRIST INCISION; * Bruising or purple discoloration of the skin near the puncture site is common. * You may shower. * DO NOT submerge wrist. * Leave dressing on FOR 24 hours. CATY SOLIS MD Mar 15, 2021 09:41
[2021-03-15] MEDS ORDERED: PATIENT MAY USE OWN MEDS, ALL PO SCH (09:45)
[2021-03-15] MEDS ORDERED: NS IV 1000 ML 1,000 ML IV SCH (09:45)
--- NOTE | 2021-03-15 09:45 | Cardiac Cath Report ---
Cardiac Cath Report Physician (s)/Welfare Adviser (s) Physician CATY BLOUNT MD Pre-Procedure Diagnosis Pre-Procedure Diagnosis: Coronary artery disease Post-Procedure Note Procedure Start Date: Mar 15, 2021 Name of Procedure: Left heart catheterization Findings/Procedure Note PROCEDURE NOTE: 55-year-old lady with recurrent chest pain, underwent stress test, had multiple episodes of SVT, questionable atrial fibrillation with rapid ventricular response terminated with 1 dose of Lopressor IV. Had ischemia in the anterior wall. Scheduled for cardiac catheterization. After explaining the procedure to the patient, all pros and cons were explained, all questions were answered. The patient signed the consent and then she was placed on the cardiac catheterization laboratory. Groin was prepped SL fashion local anesthesia was used. Sheath placed in the right femoral artery. Dexter right and left catheter were used to access the coronary system. Pigtail was used to access the left ventricular cavity. Left ventriculogram was done At the end of the procedure the sheath was removed. Closure device was deployed FINDINGS: Hemodynamics LV 129/22, end-diastolic pressure of 22 Aorta 133/73 mean of 98 ANATOMY: Left Main is free of obstructive disease Left Anterior Descending is a small artery with mild disease nonobstructive disease Left Circumflex has mild disease nonobstructive disease Right Coronary Artery has no significant obstructive disease LV Gram was done showing normal left ventricular size, normal contractility, ejection fraction 50 to 55% CONCLUSION: 1. Mild coronary artery disease nonobstructive disease 2. Normal left ventricular systolic function, ejection fraction 50 to 55%, mildly elevated left ventricular end-diastolic pressure DISCUSSION AND RECOMMENDATION: Medical therapy is recommended, I will increase Toprol to 50 mg daily and monitor tolerance and response Anesthesia Type: Conscious Sedation Estimated blood loss (mL): 15 ml Contrast Amount: 36 ml Total Radiation Dose: 345 mGy Post-Procedure Diagnosis Post-operative diagnosis: Chest pain Coronary artery disease Hypertension Hyperlipidemia CATY BLOUNT MD Mar 15, 2021 09:45
== END 2021-03-15 13:53 | disposition home or self-care (01) ==
LOC: CATH 08:00 → SDC 09:54 → CATH 13:53
PROVIDERS: ATTEND Internal Medicine Cardiovascular Disease
DX: I25.10 Atherosclerotic heart disease of native coronary artery without angina pectoris (principal); I10 Essential (primary) hypertension; I47.1 Supraventricular tachycardia; I48.0 Paroxysmal atrial fibrillation; M19.90 Unspecified osteoarthritis, unspecified site; E78.5 Hyperlipidemia, unspecified; F32.A Depression, unspecified; F41.9 Anxiety disorder, unspecified; Z79.899 Other long term (current) drug therapy; Z79.01 Long term (current) use of anticoagulants; Z90.89 Acquired absence of other organs; Z90.49 Acquired absence of other specified parts of digestive tract
CPT/HCPCS: 71045; 80053; 80061; 85027; 85610; 85730; 87081; 93458; C1760; C1894 ×2; 36415

== ENCOUNTER → 2021-05-10 | Outpatient (CLI) | payer MEDICAID ==
[~2021-05-10] MED LIST changes: -AMIO200T6 PO; +AMIO200T65 PO; +CYCL10TA25; -CYCL10TA9; -FLUO20CA46; +FLUO20CA48; -HEParin (CATH LAB) 2,000 ML IV ONE; -LIDOCAINE 1% INJ 20 ML 20 ML VIAL ONE; -LISI-729; -LISI1TAB29 PO; +LISI1TAB44 PO; +LISI5TAB20; +METO-352 PO; -NS IV 1000 ML 1,000 ML IV SCH; -NS IV 1000 ML 1,000 ML ONE
== END ==
LOC: LABNPT 02:04
PROVIDERS: ATTEND Internal Medicine Cardiovascular Disease
DX: Z53.9 Procedure and treatment not carried out, unspecified reason (principal)

== ENCOUNTER → 2021-06-14 | Outpatient (CLI) | payer MEDICAID ==
[2021-06-14 12:38] LABS: BASOPHILS % (AUTO) 1 % (0-10); EOSINOPHILS # (AUTO) 0.2 10^3/uL (0.0-0.3); EOSINOPHILS % (AUTO) 2 % (0-10); HEMATOCRIT 41 % (35-52); HEMOGLOBIN 13.7 g/dL (11.5-16.0); LYMPHOCYTES % (AUTO) 29 % (12-44); MEAN CORPUSCULAR HEMOGLOBIN 32 pg (25-34); MEAN CORPUSCULAR HGB CONC 33 g/dL (32-36); MEAN CORPUSCULAR VOLUME 97 fL (80-99); MEAN PLATELET VOLUME 9.7 fL (9.0-12.2); MONOCYTES # (AUTO) 0.4 10^3/uL (0.0-1.0); MONOCYTES % (AUTO) 6 % (0-12); NEUTROPHILS # (AUTO) 4.4 10^3/uL (1.8-7.8); NEUTROPHILS % (AUTO) 63 % (42-75); PLATELET COUNT 279 10^3/uL (130-400)
[2021-06-14 12:56] LABS: CALCIUM 9.5 MG/DL (8.5-10.1); CREATININE SERUM 0.94 MG/DL (0.60-1.30); MAGNESIUM 1.7 MG/DL (1.6-2.4); POTASSIUM 3.8 MMOL/L (3.6-5.0)
== END ==
LOC: LAB 12:15
PROVIDERS: ATTEND Internal Medicine Cardiovascular Disease
DX: I47.2 Ventricular tachycardia (principal); I48.91 Unspecified atrial fibrillation; E78.5 Hyperlipidemia, unspecified
CPT/HCPCS: 36415; 80048; 83735; 85025

== ENCOUNTER 2021-09-29 12:35 | Emergency (ER) | payer MEDICAID ==
[~2021-09-29] VITALS: Ht 175.2 cm; Wt 93.4 kg
[2021-09-29] MEDS ORDERED: cloNIDine 0.1 MG (CATAPRES) TAB PO ONE (13:15)
--- NOTE | 2021-09-29 13:15 | ED Integumentary General ---
General Chief Complaint: Skin/Wound Problems Stated Complaint: S/P ABLATION, R GROIN AREA BRUSING/KNOT Nursing Triage Note: PT ARRIVAL TO ER WITH COMPLAINT OF BRUISING/KNOT UPPER RIGHT THIGH 6 DAYS POST HEART CATH/ABLASION. PT STATES THAT SHE IS CONCERNED WITH KNOT AND CALLED PCP WHO TOLD HER TO RUN TO THE ER. NO PAIN, OR OTHER SYMPTOMS. Source: patient Exam Limitations: no limitations History of Present Illness Date Seen by Provider: September 29, 2021 Time Seen by Provider: 12:59 Initial Comments This is a 56-year-old female who presented to the ER via POV with complaints of knot in her right groin. States that she had a cardiac catheterization 6 days ago at [facility] and when she woke today she felt a knot in this region. She denies any pain, redness, increased bruising, or fever. She called her primary care provider and they instructed her to present to the emergency department. Allergies and Home Medications Allergies Coded Allergies: prednisone (Unverified Adverse Reaction, Unknown, 04/03/20) makes her 'angry' Patient Home Medication List Amiodarone HCl (Amiodarone HCl) 200 Mg Tablet, 200 MG PO BID, (Reported) Entered as Reported by: GLADIS BENITEZ on 03/15/21 0759 Apixaban (Eliquis) 5 Mg Tablet, 5 MG PO BID, (Reported) Entered as Reported by: GLADIS BENITEZ on 03/15/21 0759 Aripiprazole (Aripiprazole) 10 Mg Tablet, 10 MG PO DAILY, (Reported) Entered as Reported by: MAGALI GUSMAN on 11/30/20 142 Atorvastatin Calcium (Atorvastatin Calcium) 40 Mg Tablet, (Reported) Entered as Reported by: LEORA SUMMERS on 02/27/20 1449 Bupropion HCl (Bupropion Xl) 150 Mg Tab.er.24h, 150 MG PO DAILY, (Reported) Entered as Reported by: MAGALI GUSMAN on 11/30/20 142 Celecoxib (Celecoxib) 200 Mg Capsule, 200 MG PO DAILY, (Reported) Entered as Reported by: MAGALI GUSMAN on 11/30/20 142 Cetirizine HCl (Cetirizine HCl) 10 Mg Tablet, (Reported) Entered as Reported by: LEORA SUMMERS on 02/27/20 1449 Cyclobenzaprine HCl (Cyclobenzaprine HCl) 10 Mg Tablet, (Reported) Entered as Reported by: LEORA SUMMERS on 02/27/20 144 Famotidine (Famotidine) 20 Mg Tablet, (Reported) Entered as Reported by: LEORA SUMMERS on 02/27/20 144 Lisinopril/Hydrochlorothiazide (Lisinopril-Hctz 10-12.5 mg Tab) 1 Each Tablet, 1 EACH PO DAILY, (Reported) Entered as Reported by: MAGALI GUSMAN on 11/30/20 142 Magnesium Oxide (Magnesium) 400 Mg Tablet, 400 MG PO DAILY, (Reported) Entered as Reported by: MAGALI GUSMAN on 11/30/20 142 Metoprolol Succinate (Toprol Xl) 50 Mg Tab.er.24h, 50 MG PO DAILY Prescribed by: CATY BLOUNT on 03/15/21 0941 Mv-Mn/FA/Vit K/Lycop/Lut/Coq10 (Daily Multivitamin Capsule) 1 Each Capsule, PO DAILY, (Reported) Entered as Reported by: GLADIS BENITEZ on 03/15/21 075 [place]-3/Dha/Epa/Fish Oil (Fish Oil 1,000 mg Softgel) 1 Each Capsule, 1 EACH PO DAILY, (Reported) Entered as Reported by: GLADIS BENITEZ on 03/15/21 075 Past Vimlnww-Lsldvf-Ljzlnw Hx Patient Social History Tobacco Use?: No Use of E-Cig and/or Vaping dev: No Substance use?: No Alcohol Use?: No Pt feels they are or have been: No Immunizations Up To Date Tetanus Booster (TDap): Unknown Influenza Vaccine Up-to-Date: No; Not Current First/Initial COVID19 Vaccinat: MAY 2020 Second COVID19 Vaccination Frank: MAY 2020 Third COVID19 Vaccination Date: MAY 2020 Seasonal Allergies Seasonal Allergies: No Past Medical History Surgeries: Yes (cervical spine, colonoscopy, wrist) Appendectomy, Gallbladder, Orthopedic Respiratory: No Cardiac: Yes Heart Murmur, Hypertension Neurological: No (bells palsy) Female Reproductive Disorders: Denies Sexually Transmitted Disease: No HIV/AIDS: No Genitourinary: No Gastrointestinal: No Musculoskeletal: Yes Chronic Back Pain Endocrine: No HEENT: No Cancer: No Psychosocial: Yes Anxiety, Depression Integumentary: No Physical Exam Vital Signs Vital Signs - First Documented 09/29/21 12:54 Temp 36.0 Pulse 85 Resp 20 B/P (MAP) 197/129 (151) Pulse Ox 98 O2 Delivery Room Air Capillary Refill : Less Than 3 Seconds Progress/Results/Core Measures Results/Orders My Orders Orders - ALBA BARKER APRN Clonidine Tablet (Catapres Tablet) (09/29/21 13:15) Us Right Low Ext [id number] (09/29/21 13:02) Medications Given in ED Current Medications Medications Dose Ordered Sig/Jenny Route Start Time Stop Time Status Last Admin Dose Admin Clonidine HCl 0.1 mg ONCE ONCE PO 09/29/21 13:15 09/29/21 13:17 DC 09/29/21 13:14 0.1 MG Vital Signs/I&O 09/29/21 12:54 Temp 36.0 Pulse 85 Resp 20 B/P (MAP) 197/129 (151) Pulse Ox 98 O2 Delivery Room Air Blood Pressure Mean: 151 Departure Impression Primary Impression: Hypertension Additional Impression: Non compliance with medical treatment Disposition: HOME, SELF-CARE Condition: Stable Departure-Patient Inst. Decision time for Depature: 13:48 Referrals: [facility] (PCP) Primary Care Physician DIMITRIOS AVILES (Family) Primary Care Physician Patient Instructions: High Blood Pressure (DC) Add. Discharge Instructions: Plan: 1. Take your Blood pressure medication daily as directed, you have been given enough to cover till your follow-up with your primary care doctor on October 11. It is very important that you keep this follow-up appointment as your blood pressure is very high from not taking your blood pressure medication in over a month. 2. We have performed an ultrasound of your right leg and there are no hematomas, bleeding, concerns from your catheter insertion site. 3. Return for any new, concerning, or worsening symptom. All discharge instructions reviewed with patient and/or family. Voiced understanding. Scripts Metoprolol Succinate (Toprol Xl) 50 Mg Tab.er.24h 50 MG PO DAILY for 12 Days, #12 TAB Prov: ALBA BARKER APRN 09/29/21 Lisinopril/Hydrochlorothiazide (Lisinopril-Hctz 10-12.5 mg Tab) 1 Each Tablet 1 EACH PO DAILY for 12 Days, #12 TAB 0 Refills Prov: ALBA BARKER APRN 09/29/21 ALBA BARKER LABORATORY TECHNOLOGY TEACHER September 29, 2021 13:15
--- NOTE | 2021-09-29 13:41 | Diagnostic Imaging Report ---
INDICATION: Right groin pain post catheterization. FINDINGS: The common femoral artery and vein are patent and showed normal pulsatility and normal waveforms. No AV fistula. No aneurysm or pseudoaneurysm. No perivascular hematoma or other fluid collection. IMPRESSION: No sonographic evidence for post-catheterization complication to the right groin. Dictated by: Dictated on workstation # [id number]
[2021-09-29] MEDS ORDERED: METO-352 PO (13:51)
[2021-09-29] MEDS ORDERED: LISI1TAB44 PO (13:51)
[2021-09-29 14:01] VITALS: BP 163/97
== END 2021-09-29 14:05 | disposition home or self-care (01) ==
LOC: EDUNIT# 12:35 → ER 12:38
DX: I10 Essential (primary) hypertension (principal); Z91.14 Patient's other noncompliance with medication regimen
CPT/HCPCS: 93926

== ENCOUNTER 2021-10-08 12:34 | Observation (INO) | payer MEDICAID ==
[~2021-10-08] VITALS: Ht 175.3 cm; Wt 94.1 kg
[2021-10-08] VITALS (17 sets, daily range): BP systolic 107–138; BP diastolic 69–115
[~2021-10-08 12:34] MED LIST changes: -CYCL10TA25; +CYCL10TA25 PO; -FAMO20TA5; +FAMO20TA5 PO
[2021-10-08] MEDS ORDERED: morphine INJ 10 MG/ML 1ML (SYR OR VIAL) IV STA ×2 (12:43→15:01)
[2021-10-08] MEDS ORDERED: ASPIRIN 81 MG CHEW (CHILDREN'S ASA) PO ONE (12:45)
--- NOTE | 2021-10-08 12:48 | ED Chest Pain ---
General Stated Complaint: CHEST PAIN Source: patient Exam Limitations: no limitations History of Present Illness Date Seen by Provider: Oct 08, 2021 Time Seen by Provider: 12:43 Initial Comments Patient is a 56-year-old female with a history of A. fib, major depressive order, who presents ED by EMS from [facility] for chest pain. This started around 10:00 described as sharp in her substernal chest. No radiation. Associated shortness of breath and cough. Rates pain 7 out of 10. Patient states she had a cardiac catheterization with ablation for her history of SVT, A. fib at [facility] on September 23. She is scheduled to follow-up on October 12. Patient denies of any fever, vomiting, diarrhea, dysuria, hematuria. History of similar type pain in the past. No pain associated with eating. She was at a mental health visit at [facility] at the time of the chest pain. She visits [facility] for 3 hours a day. Patient had a cardiac cath on [address] Solis that showed mild coronary artery disease nonobstructive disease, normal left ventricular systolic function, ejection fraction 50 to 55%, mildly elevated left ventricular end-diastolic pressure. She is currently on Eliquis. Allergies and Home Medications Allergies Coded Allergies: prednisone (Unverified Adverse Reaction, Unknown, 04/03/20) makes her 'angry' Patient Home Medication List Home Medication List Reviewed: Yes Amiodarone HCl (Amiodarone HCl) 200 Mg Tablet, 200 MG PO BID, (Reported) Entered as Reported by: GLADIS BENITEZ on 03/15/21 0759 Apixaban (Eliquis) 5 Mg Tablet, 5 MG PO BID, (Reported) Entered as Reported by: GLADIS BENITEZ on 03/15/21 0759 Aripiprazole (Aripiprazole) 10 Mg Tablet, 10 MG PO DAILY, (Reported) Entered as Reported by: MAGALI GUSMAN on 11/30/20 1420 Atorvastatin Calcium (Atorvastatin Calcium) 40 Mg Tablet, (Reported) Entered as Reported by: LEORA SUMMERS on 02/27/20 1449 Bupropion HCl (Bupropion Xl) 150 Mg Tab.er.24h, 150 MG PO DAILY, (Reported) Entered as Reported by: MAGALI GUSMAN on 11/30/20 1420 Celecoxib (Celecoxib) 200 Mg Capsule, 200 MG PO DAILY, (Reported) Entered as Reported by: MAGALI GUSMAN on 11/30/20 1420 Cetirizine HCl (Cetirizine HCl) 10 Mg Tablet, (Reported) Entered as Reported by: LEORA SUMMERS on 02/27/20 1449 Cyclobenzaprine HCl (Cyclobenzaprine HCl) 10 Mg Tablet, (Reported) Entered as Reported by: LEORA SUMMERS on 02/27/20 1449 Famotidine (Famotidine) 20 Mg Tablet, (Reported) Entered as Reported by: LEORA SUMMERS on 02/27/20 1449 Lisinopril/Hydrochlorothiazide (Lisinopril-Hctz 10-12.5 mg Tab) 1 Each Tablet, 1 EACH PO DAILY Prescribed by: ALBA BARKER on 09/29/21 1351 Magnesium Oxide (Magnesium) 400 Mg Tablet, 400 MG PO DAILY, (Reported) Entered as Reported by: MAGALI GUSMAN on 11/30/20 1420 Metoprolol Succinate (Toprol Xl) 50 Mg Tab.er.24h, 50 MG PO DAILY Prescribed by: ALBA BARKER on 09/29/21 1351 Mv-Mn/FA/Vit K/Lycop/Lut/Coq10 (Daily Multivitamin Capsule) 1 Each Capsule, PO DAILY, (Reported) Entered as Reported by: GLADIS BENITEZ on 03/15/21 0759 [place]-3/Dha/Epa/Fish Oil (Fish Oil 1,000 mg Softgel) 1 Each Capsule, 1 EACH PO DAILY, (Reported) Entered as Reported by: GLADIS BENITEZ on 03/15/21 0759 Review of Systems Review of Systems Constitutional: No chills, No diaphoresis EENTM: No Double Vision, No Eye Pain Respiratory: Denies Cough Cardiovascular: Chest Pain; Denies Edema, Denies Irregular Heart Rate Gastrointestinal: Denies Abdominal Pain, Denies Diarrhea, Denies Nausea, Denies Vomiting Genitourinary: Denies Burning, Denies Discharge Musculoskeletal: No back pain, No gout, No joint pain Skin: No change in color, No change in hair/nails All Other Systems Reviewed Negative Unless Noted: Yes Past Eylsjtj-Safqex-Axhaul Hx Immunizations Up To Date Tetanus Booster (TDap): Unknown First/Initial COVID19 Vaccinat: MAY 2020 Second COVID19 Vaccination Frank: MAY 2020 Third COVID19 Vaccination Date: MAY 2020 Seasonal Allergies Seasonal Allergies: No Past Medical History Surgeries: Yes (cervical spine, colonoscopy, wrist) Appendectomy, Gallbladder, Orthopedic Respiratory: No Cardiac: Yes Heart Murmur, Hypertension Neurological: No (bells palsy) Female Reproductive Disorders: Denies Sexually Transmitted Disease: No HIV/AIDS: No Genitourinary: No Gastrointestinal: No Musculoskeletal: Yes Chronic Back Pain Endocrine: No HEENT: No Cancer: No Psychosocial: Yes Anxiety, Depression Integumentary: No Physical Exam Vital Signs Vital Signs - First Documented 10/08/21 12:40 Temp 36.6 Pulse 68 Resp 20 B/P (MAP) 193/92 (125) Pulse Ox 97 O2 Delivery Room Air Capillary Refill : Height, Weight, BMI Height: '" Weight: lbs. oz. kg; 30.00 BMI Method: General Appearance: No Apparent Distress, WD/WN HEENT: PERRL/EOMI, TMs Normal, Normal ENT Inspection, Pharynx Normal Neck: Full Range of Motion, Normal Inspection, Non Tender, Supple Respiratory: Chest Non Tender, Lungs Clear, Normal Breath Sounds, No Accessory Muscle Use, No Respiratory Distress Cardiovascular: Regular Rate, Rhythm, No Edema, No Gallop, No JVD, No Murmur Gastrointestinal: Normal Bowel Sounds, No Organomegaly, No Pulsatile Mass, Soft Extremity: Normal Capillary Refill, Normal Inspection, Normal Range of Motion, Non Tender Neurologic/Psychiatric: Alert, Oriented x3, No Motor/Sensory Deficits, Normal Mood/Affect, university counselor II-XII Norm as Tested, Abnormal Cerebellar Tests Skin: Normal Color, Warm/Dry Lymphatic: No Adenopathy Progress/Results/Core Measures Results/Orders Lab Results Laboratory Tests Test 10/08/21 12:40 Range/Units White Blood Count 9.7 4.3-11.0 10^3/uL Red Blood Count 4.64 3.80-5.11 10^6/uL Hemoglobin 14.8 11.5-16.0 g/dL Hematocrit 45 35-52 % Mean Corpuscular Volume 97 80-99 fL Mean Corpuscular Hemoglobin 32 25-34 pg Mean Corpuscular Hemoglobin Concent 33 32-36 g/dL Red Cell Distribution Width 13.1 10.0-14.5 % Platelet Count 379 130-400 10^3/uL Mean Platelet Volume 9.1 9.0-12.2 fL Immature Granulocyte % (Auto) 0 % Neutrophils (%) (Auto) 62 42-75 % Lymphocytes (%) (Auto) 26 12-44 % Monocytes (%) (Auto) 9 0-12 % Eosinophils (%) (Auto) 2 0-10 % Basophils (%) (Auto) 1 0-10 % Neutrophils # (Auto) 6.0 1.8-7.8 10^3/uL Lymphocytes # (Auto) 2.5 1.0-4.0 10^3/uL Monocytes # (Auto) 0.9 0.0-1.0 10^3/uL Eosinophils # (Auto) 0.2 0.0-0.3 10^3/uL Basophils # (Auto) 0.1 0.0-0.1 10^3/uL Immature Granulocyte # (Auto) 0.0 0.0-0.1 10^3/uL Prothrombin Time 15.7 H 12.2-14.7 SEC INR Comment 1.2 0.8-1.4 Activated Partial Thromboplast Time 33 24-35 SEC Sodium Level 138 135-145 MMOL/L Potassium Level 3.9 3.6-5.0 MMOL/L Chloride Level 101 98-107 MMOL/L Carbon Dioxide Level 22 21-32 MMOL/L Anion Gap 15 H 5-14 MMOL/L Blood Urea Nitrogen 14 7-18 MG/DL Creatinine 1.04 0.60-1.30 MG/DL Estimat Glomerular Filtration Rate 64 BUN/Creatinine Ratio 13 Glucose Level 93 70-105 MG/DL Calcium Level 9.7 8.5-10.1 MG/DL Corrected Calcium 9.4 8.5-10.1 MG/DL Magnesium Level 2.0 1.6-2.4 MG/DL Total Bilirubin 0.6 0.1-1.0 MG/DL Aspartate Amino Transf (AST/SGOT) 22 5-34 U/L Alanine Aminotransferase (ALT/SGPT) 35 0-55 U/L Alkaline Phosphatase 93 40-136 U/L Myoglobin 53.1 10.0-92.0 NG/ML Troponin I 0.107 H <0.028 NG/ML B-Type Natriuretic Peptide 77.8 <100.0 PG/ML Total Protein 7.9 6.4-8.2 GM/DL Albumin 4.4 3.2-4.5 GM/DL Lipase 31 8-78 U/L My Orders Orders - FELISHA KIM Tiffany PA Cbc With Automated Diff (10/08/21 12:43) Magnesium (10/08/21 12:43) Chest 1 View, Ap/Pa Only (10/08/21 12:43) Ekg Tracing (10/08/21 12:43) Comprehensive Metabolic Panel (10/08/21 12:43) Myoglobin Serum (10/08/21 12:43) Protime With Inr (10/08/21 12:43) Partial Thromboplastin Time (10/08/21 12:43) O2 (10/08/21 12:43) Monitor-Rhythm Ecg Trace Only (10/08/21 12:43) Lipid Panel (10/09/21 06:00) Ed Iv/Invasive Line Start (10/08/21 12:43) Lipase (10/08/21 12:43) Bnp [place] (10/08/21 12:43) Troponin I Claudia (10/08/21 12:43) Aspirin Chewable Tablet (Baby Aspirin Ch (10/08/21 12:45) Morphine Injection (Morphine Injection (10/08/21 12:43) Hydralazine Injection (Apresoline Inject (10/08/21 13:00) Ct Head Wo (10/08/21 13:10) Nitroglycerin 0.4 Mg Btl 25's (Nitrostat (10/08/21 13:45) Medications Given in ED Current Medications Medications Dose Ordered Sig/Jenny Route Start Time Stop Time Status Last Admin Dose Admin Aspirin 324 mg ONCE ONCE PO 10/08/21 12:45 10/08/21 12:55 DC 10/08/21 13:00 324 MG Hydralazine HCl 10 mg ONCE ONCE IV 10/08/21 13:00 10/08/21 13:01 DC 10/08/21 13:00 10 MG Nitroglycerin 0.4 mg UD PRN SL 10/08/21 13:45 10/08/21 13:52 0.4 MG Vital Signs/I&O 10/08/21 10/08/21 10/08/21 12:40 13:53 13:57 Temp 36.6 Pulse 68 Resp 20 B/P (MAP) 193/92 (125) 152/99 137/79 Pulse Ox 97 O2 Delivery Room Air Comment Sinus rhythm, 73 bpm, QRS duration 91 MS, QTc 428 MS. Departure Communication (PCP) Patient with substernal chest pain. Associate shortness of breath with dizziness. Developed headache here and was hypertensive. CT scan of the head was negative for acute abnormality. Patient was given hydralazine and sublingual nitro for the chest pain. Improvement of chest pain from 7-5. Was given aspirin. Currently on Eliquis. Has not been taking her metoprolol as she has been out of her medication. Currently on lisinopril and hydrochlorothiazide. She had cardiac catheterization last March that showed mild coronary artery disease. Recent cardiac cath with ablation for SVT, A. fib last month. No evidence of pericarditis. Patient troponin 0.10 on arrival. Normal BNP. Blood pressure improved from 193/108 to 112/75. Chest pain improved with morphine and nitro. Patient was discussed with Dr. Solis who recommends admission for serial troponins. Bedside echo was performed here. Patient was discussed with Dr. Reyes who agreed with admission. Recommend continue blood pressure medication. Protonix IV was ordered and recommended by Dr. Solis. She has no abdominal tenderness on palpation. Lab work was otherwise unremarkable. Chest x-ray was negative for pneumonia, pneumothorax. She was not tachycardic or hypoxic. Elevate troponin and chest will need to be further evaluated. Impression Primary Impression: Chest pain Additional Impression: Elevated troponin Disposition: ADMITTED INPATIENT Condition: Stable Admissions Decision to Admit Reason: Admit from ER (General) Decision to Admit/Date: Oct 08, 2021 Time/Decision to Admit Time: 14:56 Departure-Patient Inst. [facility] Primary Care Physician DIMITRIOS AVILES (Family) Primary Care Physician FELISHA KIM Oct 08, 2021 12:48
[2021-10-08 12:58] LABS: BASOPHILS # (AUTO) 0.1 10^3/uL (0.0-0.1); BASOPHILS % (AUTO) 1 % (0-10); EOSINOPHILS # (AUTO) 0.2 10^3/uL (0.0-0.3); EOSINOPHILS % (AUTO) 2 % (0-10); HEMATOCRIT 45 % (35-52); HEMOGLOBIN 14.8 g/dL (11.5-16.0); LYMPHOCYTES # (AUTO) 2.5 10^3/uL (1.0-4.0); LYMPHOCYTES % (AUTO) 26 % (12-44); MEAN CORPUSCULAR HEMOGLOBIN 32 pg (25-34); MEAN CORPUSCULAR HGB CONC 33 g/dL (32-36); MEAN CORPUSCULAR VOLUME 97 fL (80-99); MEAN PLATELET VOLUME 9.1 fL (9.0-12.2); MONOCYTES # (AUTO) 0.9 10^3/uL (0.0-1.0); MONOCYTES % (AUTO) 9 % (0-12); NEUTROPHILS % (AUTO) 62 % (42-75); PLATELET COUNT 379 10^3/uL (130-400); WHITE BLOOD COUNT 9.7 10^3/uL (4.3-11.0)
[2021-10-08] MEDS ORDERED: hydrALAZINE (APESOLINE) 20 MG/ML VIAL IV ONE (13:00)
[2021-10-08 13:07] LABS: ALBUMIN 4.4 GM/DL (3.2-4.5); POTASSIUM 3.9 MMOL/L (3.6-5.0)
[2021-10-08 13:08] LABS: CALCIUM 9.7 MG/DL (8.5-10.1)
[2021-10-08 13:09] LABS: INR 1.2 (0.8-1.4); PROTHROMBIN TIME PATIENT 15.7 SEC (12.2-14.7)
[2021-10-08 13:10] LABS: TOTAL PROTEIN 7.9 GM/DL (6.4-8.2)
[2021-10-08 13:11] LABS: BILIRUBIN,TOTAL 0.6 MG/DL (0.1-1.0)
[2021-10-08 13:13] LABS: CREATININE SERUM 1.04 MG/DL (0.60-1.30)
--- NOTE | 2021-10-08 13:26 | Diagnostic Imaging Report ---
INDICATION: Chest pain. TIME OF EXAM: 1:17 PM Correlation is made with prior chest from 03/15/2021. FINDING: The heart size is normal. The pulmonary vascularity is unremarkable. The lungs are clear. No infiltrate, effusion or pneumothorax is detected. IMPRESSION: No acute cardiopulmonary process is detected. Dictated by: Dictated on workstation # [id number]
--- NOTE | 2021-10-08 13:32 | Diagnostic Imaging Report ---
PROCEDURE: CT head without contrast. TECHNIQUE: Multiple contiguous axial images were obtained through the brain without the use of intravenous contrast. Auto Exposure Controls were utilized during the CT exam to meet ALARA standards for radiation dose reduction. INDICATION: Head pain and dizziness. Comparison is made with prior CT from 05/25/2020. FINDINGS: Ventricles and sulci are within normal limits. No sulcal effacement or midline shift is identified. No acute intra-axial or extra-axial hemorrhage is detected. Cisterns are patent. Visualized paranasal sinuses are clear. IMPRESSION: No acute intracranial process is detected. Dictated by: Dictated on workstation # [id number]
[2021-10-08] MEDS: NITROGLYCERIN 0.4 MG SL TABS BTL 25'S SL PRN (13:52)
--- NOTE | 2021-10-08 15:02 | Consultation-Cardiology ---
HPI-Cardiology Cardiology Consultation Date of Consultation 10/08/21 Date of Admission Time Seen by Provider: 14:59 Indication: Chest pain HPI 56-year-old lady with history of depression. Had recent ablation with Dr. Dunn. Has history of hypertension, normal coronaries per cardiac cath in March 2021. Started to have chest pain dull in nature in the retrosternal area. Persisted. No palpitation. No syncope. Home Medications & Allergies Allergies: Coded Allergies: prednisone (Unverified Adverse Reaction, Unknown, 04/03/20) makes her 'angry' Home Medication List Reviewed: Yes YSI-Tbbesf-Vlzere Hx Patient Social History Marital Status: 2nd Hand Smoke Exposure: No Recent Hopitalizations: No Have you traveled recently?: No Alcohol Use?: No Immunizations Up To Date Tetanus Booster (TDap): Unknown Past Medical History Discussed below Family Medical History Family Medical Hx Noncontributory Review of Systems-General Review of Systems Constitutional: No chills, No diaphoresis; malaise EENTM: see HPI, no symptoms reported Respiratory: no symptoms reported, see HPI Cardiovascular: see HPI, chest pain; No edema, No Hx of Intervention, No palpitations, No syncope, No vascular heart diseas, No other Gastrointestinal: no symptoms reported, see HPI Genitourinary: no symptoms reported, see HPI Musculoskeletal: No back pain, No gout, No joint pain Skin: No change in color, No change in hair/nails Psychiatric/Neurological: No Symptoms Reported, See HPI All Other Systems Reviewed Negative Unless Noted: Yes Reviewed Test Results Reviewed Test Results Lab Laboratory Tests Test 10/08/21 12:40 Range/Units White Blood Count 9.7 4.3-11.0 10^3/uL Red Blood Count 4.64 3.80-5.11 10^6/uL Hemoglobin 14.8 11.5-16.0 g/dL Hematocrit 45 35-52 % Mean Corpuscular Volume 97 80-99 fL Mean Corpuscular Hemoglobin 32 25-34 pg Mean Corpuscular Hemoglobin Concent 33 32-36 g/dL Red Cell Distribution Width 13.1 10.0-14.5 % Platelet Count 379 130-400 10^3/uL Mean Platelet Volume 9.1 9.0-12.2 fL Immature Granulocyte % (Auto) 0 % Neutrophils (%) (Auto) 62 42-75 % Lymphocytes (%) (Auto) 26 12-44 % Monocytes (%) (Auto) 9 0-12 % Eosinophils (%) (Auto) 2 0-10 % Basophils (%) (Auto) 1 0-10 % Neutrophils # (Auto) 6.0 1.8-7.8 10^3/uL Lymphocytes # (Auto) 2.5 1.0-4.0 10^3/uL Monocytes # (Auto) 0.9 0.0-1.0 10^3/uL Eosinophils # (Auto) 0.2 0.0-0.3 10^3/uL Basophils # (Auto) 0.1 0.0-0.1 10^3/uL Immature Granulocyte # (Auto) 0.0 0.0-0.1 10^3/uL Prothrombin Time 15.7 H 12.2-14.7 SEC INR Comment 1.2 0.8-1.4 Activated Partial Thromboplast Time 33 24-35 SEC Sodium Level 138 135-145 MMOL/L Potassium Level 3.9 3.6-5.0 MMOL/L Chloride Level 101 98-107 MMOL/L Carbon Dioxide Level 22 21-32 MMOL/L Anion Gap 15 H 5-14 MMOL/L Blood Urea Nitrogen 14 7-18 MG/DL Creatinine 1.04 0.60-1.30 MG/DL Estimat Glomerular Filtration Rate 64 BUN/Creatinine Ratio 13 Glucose Level 93 70-105 MG/DL Calcium Level 9.7 8.5-10.1 MG/DL Corrected Calcium 9.4 8.5-10.1 MG/DL Magnesium Level 2.0 1.6-2.4 MG/DL Total Bilirubin 0.6 0.1-1.0 MG/DL Aspartate Amino Transf (AST/SGOT) 22 5-34 U/L Alanine Aminotransferase (ALT/SGPT) 35 0-55 U/L Alkaline Phosphatase 93 40-136 U/L Myoglobin 53.1 10.0-92.0 NG/ML Troponin I 0.107 H <0.028 NG/ML B-Type Natriuretic Peptide 77.8 <100.0 PG/ML Total Protein 7.9 6.4-8.2 GM/DL Albumin 4.4 3.2-4.5 GM/DL Lipase 31 8-78 U/L Physical Exam Physical Exam Vital Signs Vital Signs - First Documented 10/08/21 12:40 Temp 36.6 Pulse 68 Resp 20 B/P (MAP) 193/92 (125) Pulse Ox 97 O2 Delivery Room Air Capillary Refill : Less Than 3 Seconds Height, Weight, BMI Height: '" Weight: lbs. oz. kg; 31.00 BMI Method: General Appearance: No Apparent Distress, WD/WN Eyes: Bilateral Eye Normal Inspection, Bilateral Eye PERRL, Bilateral Eye EOMI HEENT: PERRL/EOMI, TMs Normal, Normal ENT Inspection, Pharynx Normal Neck: Full Range of Motion, Normal Inspection, Non Tender, Supple Respiratory: Chest Non Tender, Lungs Clear, Normal Breath Sounds, No Accessory Muscle Use, No Respiratory Distress Cardiovascular: Regular Rate, Rhythm, No Edema, No Gallop, No JVD, No Murmur Gastrointestinal: Normal Bowel Sounds, No Organomegaly, No Pulsatile Mass, Soft Back: Normal Inspection, No CVA Tenderness, No Vertebral Tenderness Extremity: Normal Capillary Refill, Normal Inspection, Normal Range of Motion, Non Tender Neurologic/Psychiatric: Alert, Oriented x3, No Motor/Sensory Deficits, Normal Mood/Affect, die repair II-XII Norm as Tested, Abnormal Cerebellar Tests Skin: Normal Color, Warm/Dry Lymphatic: No Adenopathy A/P-Cardiology Admission Diagnosis Chest pain Type II UT Hypertensive urgency Paroxysmal atrial fibrillation Assessment/Plan Chest pain nonspecific etiology, atypical in presentation, mild elevation in troponin probably type II UT secondary to severe hypertension Hypertensive urgency, blood pressure is poorly controlled, she was restarted on lisinopril HCTZ and metoprolol. Aspirin. Paroxysmal atrial fibrillation status post recent ablation done on September [address] Dunn. History of nonsustained ventricular tachycardia noted during stress test. Coronary artery disease, cardiac catheterization was carried out in March 2021 showing mild coronary artery disease nonobstructive disease Hyperlipidemia maintained on Lipitor Arthritis, joint pain Anxiety and depression History of palpitation. Clinical Quality Measures AMI/AHF: ASA po Prior to arrival: CATY Randhawa MD Oct 08, 2021 15:02
[2021-10-08] MEDS ORDERED: CATHETER FLUSH 10 ML SYR IV PRN (17:00)
[2021-10-08] MEDS ORDERED: morphine INJ 4 MG/ML 1 ML (VIAL/SYRINGE) IVP PRN (17:00)
[2021-10-08] MEDS: buPROPion SR 150 MG (WELLBUTRIN SR) TAB PO SCH (22:05)
[2021-10-08] MEDS: APIXABAN 5 MG (ELIQUIS) TABLET PO SCH (22:06)
[2021-10-08] MEDS ORDERED: ONDANSETRON 4 MG/2 ML (SDV) Z0FRAN IVP PRN (22:45)
[2021-10-08] MEDS: CATHETER FLUSH 10 ML SYR IV SCH (23:10)
[2021-10-09] VITALS (10 sets, daily range): BP systolic 105–143; BP diastolic 63–102
[2021-10-09] MEDS: CATHETER FLUSH 10 ML SYR IV SCH ×2 (07:51→13:25)
[2021-10-09] MEDS: NITROGLYCERIN 0.4 MG SL TABS BTL 25'S SL PRN (07:54)
[2021-10-09] MEDS: APIXABAN 5 MG (ELIQUIS) TABLET PO SCH (08:09)
[2021-10-09] MEDS: buPROPion SR 150 MG (WELLBUTRIN SR) TAB PO SCH (08:09)
[2021-10-09] MEDS ORDERED: PANT40TA52 PO (08:17)
[2021-10-09] MEDS ORDERED: lisINopril 10 MG (PRINIVIL) TABLET PO SCH (09:00)
[2021-10-09] MEDS ORDERED: meTOproloL SUCCINATE 50 MG (TOPROL XL) TAB PO SCH (09:00)
[2021-10-09] MEDS ORDERED: PANTOPRAZOLE 40 MG (PROTONIX) VIAL IV SCH (09:00)
[2021-10-09] MEDS ORDERED: VERAPAMIL 5 MG/2 ML (CALAN) VIAL IV ONE (09:51)
[2021-10-09] MEDS ORDERED: NS IV 1000 ML 1,000 ML ONE (09:52)
[2021-10-09] MEDS ORDERED: NITRO DRIP 25000 MCG/D5W 0 ML IV ONE (09:52)
[2021-10-09] MEDS ORDERED: fentaNYL INJ 100 MCG/2 ML AMP ONE (09:52)
[2021-10-09] MEDS ORDERED: HEParin 1000 UNIT/ML (10ML VIAL) FOR BOLUS ONE (09:52)
[2021-10-09] MEDS ORDERED: LIDOCAINE 1% INJ 20 ML VIAL ONE (09:52)
[2021-10-09] MEDS ORDERED: HEParin (CATH LAB) 1,000 ML IV ONE (09:52)
[2021-10-09] MEDS ORDERED: MIDAZOLAM 5 MG/5 ML (VERSED) VIAL ONE (09:52)
--- NOTE | 2021-10-09 10:02 | Cardiology Progress Note ---
Subjective Date Seen by Provider: Oct 09, 2021 Time Seen by Provider: 10:01 Subjective/Events-last exam Patient was seen at bedside, laying down comfortably Still having active chest pain, retrosternal and left-sided. Review of Systems General: No Chills, No Night Sweats, No Fatigue, No Malaise, No Appetite, No Other HEENT: No Head Aches, No Visual Changes, No Eye Pain, No Ear Pain, No Dysphasia, No Sinus Congestion, No Post Nasal Drip, No Sore Throat, No Other Pulmonary: No Dyspnea, No Cough, No Pleuritic Chest Pain, No Other Cardiovascular: Chest Pain; No: Palpitations, Orthopnea, Paroxysmal Noc. Dyspnea, Edema, Lt Headedness, Other Objective-Cardiology Exam Last Set of Vital Signs Vital Signs 10/09/21 10/09/21 10/09/21 04:00 07:00 07:53 Temp 36.0 Pulse 64 Resp 12 B/P (MAP) 116/74 (88) Pulse Ox 93 O2 Delivery Room Air I&O Intake and Output 10/09/21 00:00 Intake Total 100 ml Output Total 400 ml Balance -300 ml Intake Oral 100 ml Output Urine Total 400 ml Daily Weight Change No General: Alert, Oriented X3, Cooperative HEENT: Atraumatic, PERRLA Neck: Supple, No JVD, No Thyromegaly Lungs: Clear to Auscultation, Normal Air Movement Heart: Regular Rate, Normal S1, Normal S2, No Murmurs Abdomen: Normal Bowel Sounds, Soft, No Tenderness, No Hepatosplenomegaly, No Masses Extremities: No Clubbing, No Cyanosis, No Edema, Normal Pulses, No Tenderness/Swelling Skin: No Rashes, No Breakdown, No Significant Lesion Neuro: Normal Gait, Normal Speech, Strength at 5/5 X4 Ext, Normal Tone, Sensation Intact Psych/Mental Status: Mental Status NL, Mood NL Results Lab Laboratory Tests 10/08/21 12:40 A/P-Cardiology Admission Diagnosis Chest pain Type II WA Hypertensive urgency Paroxysmal atrial fibrillation Assessment/Plan Chest pain nonspecific etiology, atypical in presentation, mild elevation in troponin probably type II WA secondary to severe hypertension Still having active chest pain, troponin is persistently mildly elevated. Patient is known to have mild coronary artery disease, due to the active chest pain and elevated troponin I decided to repeat cardiac catheterization. Hypertensive urgency, better control at this time. Continue to monitor Paroxysmal atrial fibrillation status post recent ablation done on September [address] Miranda. History of nonsustained ventricular tachycardia noted during stress test. Coronary artery disease, cardiac catheterization was carried out in March 2021 showing mild coronary artery disease nonobstructive disease Hyperlipidemia maintained on Lipitor Arthritis, joint pain Anxiety and depression History of palpitation. CATY BLOUNT MD Oct 09, 2021 10:02
--- NOTE | 2021-10-09 10:03 | Conscious Sedation/ASA ---
Conscious Sedation Pre-Proced Time 10:02 ASA Score 3 For ASA 3 and 4: Consider anesthesia and medical clearance. Also, for patients with a history of failed moderate sedation consider anesthesia. Airway Lungs Heart ASA score ASA 1: a normal healthy patient ASA 2: a patient with a mild systemic disease (mid diabetes, controlled hypertension, obesity x ASA 3: a patient with a severe systemic disease that limits activity (angina, COPD, prior Myocardial infarction) ASA 4: a patient with an incapacitating disease that is a constant threat to life (CHF, renal failure) ASA 5: a moribund patient not expected to survive 24 hrs. (ruptured aneurysm) ASA 6: a declared brain- patient whose organs are being harvested. For emergent operations, add the letter E after the classification Mallampati Classification Grade 3 Sedation Plan Analgesia, Amnesia, Plan communicated to team members, Discussed options with patient/fam, Discussed risks with patient/fam The patient is an appropriate candidate to undergo the planned procedure, sedation, and anesthesia. The patient immediately re-assessed prior to indication. CATY BLOUNT MD Oct 09, 2021 10:03
--- NOTE | 2021-10-09 11:14 | Discharge Inst-Post CATH ---
Discharge Inst-CATH/EP Problems Reviewed?: Yes Post Cardiac Cath/EP D/C Inst Follow Up/Plan Appointment with Dr. Solis's office in 2 to 4 weeks <b>CARDIAC CATH/EP PROCEDURE DISCHARGE INSTRUCTIONS</b> ACTIVITY * Go Home directly and rest. * Limit activity of the leg (or wrist if it was used) for 7 days including aer obics, swimming, jogging, bicycling, etc. * Restrict stair-climbing for 7 days if possible, if not, climb up with your non-cath leg, then bring together on the same step. * Avoid lifting, pushing, pulling or excessive movement of the affected extremi ty for 7 days. * Customary sexual activity may be resumed after 2 days-use caution not to use a position that strains or causes pain to the affected extremity. * No driving for 24 hours. * NO SMOKING. * Avoid straining for bowel movements for 7 days. * Gentle walking on level ground is allowed. * Returning to work will depend on the type of procedure and the results. Your doctor will discuss this with you. CALL YOUR DOCTOR FOR ANY OF THE FOLLOWING: *If bleeding from the puncture site occurs- Apply gentle pressure to site with clean cloth and call your doctor or EMS. * If a knot or lump forms under the skin, increases in size, or causes pain. * If bruising appears to be worsening or moving further down your leg instead of disappearing. * Temperature above 101 F. CARE OF YOUR GROIN INCISION; * Bruising or purple discoloration of the skin near the puncture site is common. * You may shower only, no bathtub bathing for 5 days. Be careful to avoid slipping as your leg may feel stiff. * If a closure device was used on your femoral artery, please see the attached guide regarding care of the device and your leg. * Leave dressing on FOR 24 hours. CARE OF YOUR WRIST INCISION; * Bruising or purple discoloration of the skin near the puncture site is common. * You may shower. * DO NOT submerge wrist. * Leave dressing on FOR 24 hours. CATY SOLIS MD Oct 09, 2021 11:14
[2021-10-09] MEDS ORDERED: NS IV 1000 ML 1,000 ML IV SCH (11:15)
[2021-10-09] MEDS ORDERED: PATIENT MAY USE OWN MEDS, ALL PO SCH (11:15)
--- NOTE | 2021-10-09 11:20 | Cardiac Cath Report ---
Cardiac Cath Report Physician (s)/Elementary School Teacher (s) Physician CATY BLOUNT MD Pre-Procedure Diagnosis Pre-Procedure Diagnosis: Coronary artery disease Post-Procedure Note Procedure Start Date: Oct 09, 2021 Name of Procedure: Left heart catheterization Findings/Procedure Note PROCEDURE NOTE: 56-year-old lady with history of mild coronary artery disease, underwent atrial fibrillation ablation on September 23, 2021. Admitted with acute chest pain and hypertension. Continue to have chest pain overnight and continued to have persistent troponin elevation, no acute EKG changes. I decided to proceed with cardiac catheterization possible PTCA. After explaining the procedure to the patient, all pros and cons were explained, all questions were answered. The patient signed the consent and then she was placed on the cardiac catheterization laboratory. Groin was prepped SL fashion local anesthesia was used. Attempt to access the right radial artery has failed. I was unable to get any blood return through the sheath. It was removed and a wrist band was used then I proceeded with placement of 6 Romanian sheath in the right femoral artery, Dexter left was advanced and engaged the left system and angiogram was done. Dexter right was advanced to the left ventricular cavity, pressure was measured, pullback LV to aorta and engaged the right coronary artery and angiogram was done. At the end of the procedure the sheath was removed. Closure device was deployed FINDINGS: Hemodynamics LV 120/14, end-diastolic pressure of 14 Aorta 137/77 mean of 102 ANATOMY: Left Main is free of obstructive disease Left Anterior Descending is small artery with mild tortuosity no obstructive disease Left Circumflex is small artery with no obstructive disease Right Coronary Artery is dominant artery, small in size with no obstructive disease LV Gram was not done, pressure was measured CONCLUSION: 1. Small coronary system with mild disease no significant obstructive disease 2. Normal left ventricular end-diastolic pressure DISCUSSION AND RECOMMENDATION: Patient has been having chest pain and had mild elevation in troponin, probably secondary to the ablation that she underwent 2 weeks ago. I reassured her at this time recommended continuing with Protonix twice daily and continue on the Eliquis. Continue to monitor blood pressure and will arrange for follow-up in 2 weeks Anesthesia Type: Conscious Sedation Estimated blood loss (mL): 10 ml Contrast Amount: 18 ml Total Radiation Dose: 290 mGy Post-Procedure Diagnosis Post-operative diagnosis: Final diagnosis: Chest pain Paroxysmal atrial fibrillation Hypertension Hyperlipidemia CATY BLOUNT MD Oct 09, 2021 11:20
== END 2021-10-09 16:00 | disposition home or self-care (01) ==
LOC: EDUNIT# 12:34 → ER 12:35 → CSD 14:30
PROVIDERS: ADMIT Internal Medicine; ATTEND Internal Medicine
DX: I25.10 Atherosclerotic heart disease of native coronary artery without angina pectoris (principal); R77.8 Other specified abnormalities of plasma proteins; I48.0 Paroxysmal atrial fibrillation; I10 Essential (primary) hypertension; E78.5 Hyperlipidemia, unspecified; I21.A1 Myocardial infarction type 2; I16.0 Hypertensive urgency; M19.90 Unspecified osteoarthritis, unspecified site; F32.A Depression, unspecified; F41.9 Anxiety disorder, unspecified; Z79.01 Long term (current) use of anticoagulants; Z79.899 Other long term (current) drug therapy
CPT/HCPCS: 36140; 70450; 71045; 80053; 80061; 83690; 83735; 83874; 83880; 84484 ×2; 85025; 85610; 85730; 93005; 93041; 93306; 93458; 96375 ×2; 96376; 99284; C1760; C1894 ×2; 36415

== ENCOUNTER 2021-11-23 17:16 | Emergency (ER) | payer MEDICAID ==
[~2021-11-23] VITALS: Ht 175.2 cm; Wt 88.4 kg
[~2021-11-23 17:16] MED LIST changes: +PANT40TA52 PO
[2021-11-23 17:25] VITALS: BP 115/70
--- NOTE | 2021-11-23 17:42 | ED Lower Extremity ---
General Chief Complaint: Lower Extremity Stated Complaint: FELL HURT LEFT KNEE Source: patient Exam Limitations: no limitations History of Present Illness Date Seen by Provider: Nov 23, 2021 Time Seen by Provider: 17:41 Initial Comments Patient is a 56-year-old female presents ED with left knee pain. [place] few hours ago. Fell on a walker landing on the ground with her left knee resulting in swelling and bruising. Able to ambulate but with pain and discomfort. Feels like left knee wants to give out. No history of previous fracture. Denies taking anything for pain. Allergies and Home Medications Allergies Coded Allergies: prednisone (Unverified Adverse Reaction, Unknown, 04/03/20) makes her 'angry' Patient Home Medication List Home Medication List Reviewed: Yes Apixaban (Eliquis) 5 Mg Tablet, 5 MG PO BID, (Reported) Entered as Reported by: GLADIS BENITEZ on 03/15/21 0759 Aripiprazole (Aripiprazole) 10 Mg Tablet, 10 MG PO DAILY, (Reported) Entered as Reported by: MAGALI GUSMAN on 11/30/20 1420 Atorvastatin Calcium (Atorvastatin Calcium) 40 Mg Tablet, (Reported) Entered as Reported by: LEORA SUMMERS on 02/27/20 1449 Bupropion HCl (Bupropion Xl) 150 Mg Tab.er.24h, 150 MG PO DAILY, (Reported) Entered as Reported by: MAGALI GUSMAN on 11/30/20 1420 Celecoxib (Celecoxib) 200 Mg Capsule, 200 MG PO DAILY, (Reported) Entered as Reported by: MAGALI GUSMAN on 11/30/20 1420 Cetirizine HCl (Cetirizine HCl) 10 Mg Tablet, (Reported) Entered as Reported by: LEORA SUMMERS on 02/27/20 1449 Cyclobenzaprine HCl (Cyclobenzaprine HCl) 10 Mg Tablet, 10 MG PO HS, (Reported) Entered as Reported by: LEORA SUMMERS on 02/27/20 1449 Famotidine (Famotidine) 20 Mg Tablet, 20 MG PO DAILY, (Reported) Entered as Reported by: LEORA SUMMERS on 02/27/20 1449 Lisinopril/Hydrochlorothiazide (Lisinopril-Hctz 10-12.5 mg Tab) 1 Each Tablet, 1 EACH PO DAILY Prescribed by: ALBA BARKER on 09/29/21 1351 [place]-3/Dha/Epa/Fish Oil (Fish Oil 1,000 mg Softgel) 1 Each Capsule, 1 EACH PO DAILY, (Reported) Entered as Reported by: GLADIS BENITEZ on 03/15/21 0759 Pantoprazole Sodium (Pantoprazole Sodium) 40 Mg Tablet.dr, 40 MG PO BID, (Reported) Entered as Reported by: EMILIE CACERES on 10/09/21 0817 Review of Systems Constitutional: No chills, No diaphoresis EENTM: No hearing loss, No ear pain, No blurred vision Respiratory: No cough, No dyspnea on exertion Cardiovascular: No chest pain, No edema Gastrointestinal: No abdominal pain, No diarrhea, No nausea, No vomiting Genitourinary: No decreased output, No discharge Musculoskeletal: joint pain, muscle pain Skin: change in color All Other Systems Reviewed Negative Unless Noted: Yes Past Yezsqjm-Jfcyhe-Kyryzv Hx Immunizations Up To Date Tetanus Booster (TDap): Unknown First/Initial COVID19 Vaccinat: VIDHYA IN 2020 Second COVID19 Vaccination Frank: MAY 2020 Third COVID19 Vaccination Date: MAY 2020 Seasonal Allergies Seasonal Allergies: No Past Medical History Surgeries: Yes (cervical spine, colonoscopy, wrist) Appendectomy, Gallbladder, Orthopedic Respiratory: No Cardiac: Yes Heart Murmur, Hypertension Neurological: No (bells palsy) Female Reproductive Disorders: Denies Sexually Transmitted Disease: No HIV/AIDS: No Genitourinary: No Gastrointestinal: No Musculoskeletal: Yes Chronic Back Pain Endocrine: No HEENT: No Cancer: No Psychosocial: Yes Anxiety, Depression Integumentary: No Physical Exam Vital Signs Vital Signs - First Documented 11/23/21 17:25 Temp 37.0 Pulse 74 Resp 16 B/P (MAP) 115/70 (85) Pulse Ox 98 O2 Delivery Room Air Capillary Refill : Height, Weight, BMI Height: '" Weight: lbs. oz. kg; 30.62 BMI Method: General Appearance: WD/WN, no apparent distress HEENT: PERRL/EOMI, normal ENT inspection, TMs normal, pharynx normal Neck: non-tender, full range of motion, supple, normal inspection Cardiovascular: regular rate, rhythm, no edema, no gallop, no JVD Respiratory: chest non-tender, lungs clear, normal breath sounds, no respiratory distress Gastrointestinal: normal bowel sounds, non tender, soft, no organomegaly Back: no CVA tenderness Knees: left knee pain, left knee soft tissue tenderness, left knee swelling Ankles: bilateral ankle non-tender, bilateral ankle normal inspection, bilate ral ankle normal range of motion Feet: bilateral foot non-tender, bilateral foot normal inspection, bilateral foot normal range of motion 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, no motor/sensory deficits, alert, normal mood/affect, oriented x 3 Skin: other (Contusion to left knee) Progress/Results/Core Measures Results/Orders My Orders Orders - FELISHA KIM Knee, Left, 3 Views (11/23/21 17:38) Acetaminophen Tablet/Caplet (Tylenol T (11/23/21 17:45) Medications Given in ED Current Medications Medications Dose Ordered Sig/Jenny Route Start Time Stop Time Status Last Admin Dose Admin Acetaminophen 650 mg ONCE ONCE PO 11/23/21 17:45 11/23/21 17:46 DC 11/23/21 17:47 650 MG Vital Signs/I&O 11/23/21 17:25 Temp 37.0 Pulse 74 Resp 16 B/P (MAP) 115/70 (85) Pulse Ox 98 O2 Delivery Room Air Departure Communication (PCP) Patient is a 56-year-old female who presents the ED left knee pain. Patient fell this afternoon. X-ray was negative for fracture. Appropriate range of motion but does have tenderness with swelling and bruising to the anterior knee. Recommend Luis A wrap, ice elevate and anti-inflammatories. Orthopedic follow-up in 7 to 10 days for reevaluation as needed. Return precaution were discussed with patient. Impression Primary Impression: Knee pain Disposition: 01 HOME, SELF-CARE Condition: Stable Departure-Patient Inst. Decision time for Depature: 18:08 Referrals: [facility]/ (PCP) Primary Care Physician DIMITRIOS AVILES (Family) Primary Care Physician MARIANO GALVEZ MD Patient Instructions: Knee Sprain (DC) FELISHA KIM Nov 23, 2021 17:42
[2021-11-23] MEDS ORDERED: ACETAMINOPHEN 325 MG TABLET PO ONE (17:45)
--- NOTE | 2021-11-23 18:12 | Diagnostic Imaging Report ---
INDICATION: Injury with pain. FINDINGS: A three-view left knee showed no fracture, dislocation, or acute articular irregularity. There is no loose body. No joint effusion. IMPRESSION: No acute finding. Dictated by: Dictated on workstation # [id number]
== END 2021-11-23 18:25 | disposition home or self-care (01) ==
LOC: EDUNIT# 17:16 → ER 17:19
DX: S80.02XA Contusion of left knee, initial encounter (principal); W18.30XA Fall on same level, unspecified, initial encounter; Y92.89 Other specified places as the place of occurrence of the external cause
CPT/HCPCS: 73562

== ENCOUNTER 2022-11-22 17:28 | Emergency (ER) | payer MEDICAID ==
[~2022-11-22] VITALS: Ht 175.2 cm; Wt 90.0 kg
--- NOTE | 2022-11-22 17:55 | ED Head Injury ---
General Chief Complaint: Trauma-Non Activation Stated Complaint: FALL Nursing Triage Note: PT AMB TO ED BY POV WITH C/O HEAD INJURY. PT REPORTS SHE LOST HER BALANCE, FELL BACKWARDS, AND HIT HER HEAD ON THE FLOOR. DENIES LOC. PT ALSO C/O L ARM PAIN. PT A&OX4. Source: patient Exam Limitations: no limitations History of Present Illness Date Seen by Provider: Nov 22, 2022 Time Seen by Provider: 17:38 Initial Comments 57-year-old female presents to the ER via EMS after a fall. She states that at 5:25 PM she was trying to balance on one leg and she fell backwards hitting the back of her head. She complains of posterior head pain and midline neck pain. She denies loss of consciousness, nausea, vomiting, amnesia prior to or after the event. She is alert and oriented x4. She reports she does take Eliquis for atrial fibrillation. She states she has been feeling fine prior to the fall. Allergies and Home Medications Allergies Coded Allergies: prednisone (Unverified Adverse Reaction, Unknown, 04/03/20) makes her 'angry' Patient Home Medication List Home Medication List Reviewed: Yes Apixaban (Eliquis) 5 Mg Tablet, 5 MG PO BID, (Reported) Entered as Reported by: GLADIS BENITEZ on 03/15/21 0759 Aripiprazole (Aripiprazole) 10 Mg Tablet, 10 MG PO DAILY, (Reported) Entered as Reported by: MAGALI GUSMAN on 11/30/20 1420 Atorvastatin Calcium (Atorvastatin Calcium) 40 Mg Tablet, (Reported) Entered as Reported by: LEORA SUMMERS on 02/27/20 1449 Bupropion HCl (Bupropion Xl) 150 Mg Tab.er.24h, 150 MG PO DAILY, (Reported) Entered as Reported by: MAGALI GUSMAN on 11/30/20 1420 Celecoxib (Celecoxib) 200 Mg Capsule, 200 MG PO DAILY, (Reported) Entered as Reported by: MAGALI GUSMAN on 11/30/20 1420 Cetirizine HCl (Cetirizine HCl) 10 Mg Tablet, (Reported) Entered as Reported by: LEORA SUMMERS on 02/27/20 1449 Cyclobenzaprine HCl (Cyclobenzaprine HCl) 10 Mg Tablet, 10 MG PO HS, (Reported) Entered as Reported by: LEORA SUMMERS on 02/27/20 1449 Famotidine (Famotidine) 20 Mg Tablet, 20 MG PO DAILY, (Reported) Entered as Reported by: LEORA SUMMERS on 02/27/20 1449 Lisinopril/Hydrochlorothiazide (Lisinopril-Hctz 10-12.5 mg Tab) 1 Each Tablet, 1 EACH PO DAILY Prescribed by: ALBA BARKER on 09/29/21 1351 [place]-3/Dha/Epa/Fish Oil (Fish Oil 1,000 mg Softgel) 1 Each Capsule, 1 EACH PO DAILY, (Reported) Entered as Reported by: GLADIS BENITEZ on 03/15/21 0759 Pantoprazole Sodium (Pantoprazole Sodium) 40 Mg Tablet.dr, 40 MG PO BID, (Reported) Entered as Reported by: EMILIE CACERES on 10/09/21 0817 Review of Systems Review of Systems Constitutional: see HPI Past Xrcaswk-Rvfgpb-Yijxko Hx Patient Social History Tobacco Use?: No Use of E-Cig and/or Vaping dev: No Substance use?: No Alcohol Use?: No Pt feels they are or have been: No Immunizations Up To Date Tetanus Booster (TDap): Unknown Influenza Vaccine Up-to-Date: No; Not Current First/Initial COVID19 Vaccinat: JOB AND JOB IN 2020 Second COVID19 Vaccination Frank: MAY 2020 Third COVID19 Vaccination Date: MAY 2020 Seasonal Allergies Seasonal Allergies: No Past Medical History Surgery/Hospitalization HX: HTN, DEPRESSION, ANXIETY Surgeries: Yes (cervical spine, colonoscopy, wrist) Appendectomy, Gallbladder, Orthopedic Respiratory: No Cardiac: Yes Atrial Fibrillation, Heart Murmur, High Cholesterol, Hypertension Neurological: No (bells palsy) Female Reproductive Disorders: Denies Sexually Transmitted Disease: No HIV/AIDS: No Genitourinary: No Gastrointestinal: No Musculoskeletal: Yes Chronic Back Pain Endocrine: No HEENT: No Cancer: No Psychosocial: Yes Anxiety, Depression Integumentary: No Physical Exam Vital Signs Vital Signs - First Documented 11/22/22 17:32 Temp 37.0 Pulse 82 Resp 18 B/P (MAP) 138/88 (105) Pulse Ox 97 O2 Delivery Room Air Capillary Refill : Less Than 3 Seconds Height, Weight, BMI Height: '" Weight: lbs. oz. kg; 29.00 BMI Method: General Appearance: WD/WN, no apparent distress HEENT: PERRL/EOMI, TMs normal Neck: supple, normal inspection Cardiovascular: regular rate, rhythm Respiratory: lungs clear, normal breath sounds, no respiratory distress, no accessory muscle use Extremities: normal range of motion, normal inspection Psychiatric: alert, oriented x 3 Crainal Nerves: normal hearing, normal speech, PERRL Motor/Sensory: no motor deficit, no sensory deficit Skin: normal color, warm/dry Progress/Results/Core Measures Results/Orders My Orders Orders - MADELEINE ELLER APRN Ct Head/Cervical Spine Wo (11/22/22 17:46) Acetaminophen Tablet (Tylenol Tablet) (11/22/22 18:30) Medications Given in ED Current Medications Medications Dose Ordered Sig/Jenny Route Start Time Stop Time Status Last Admin Dose Admin Acetaminophen 1,000 mg ONCE ONCE PO 11/22/22 18:30 11/22/22 18:31 DC 11/22/22 18:38 1,000 MG Vital Signs/I&O 11/22/22 11/22/22 17:32 18:40 Temp 37.0 Pulse 82 68 Resp 18 16 B/P (MAP) 138/88 (105) 105/68 Pulse Ox 97 97 O2 Delivery Room Air Room Air Blood Pressure Mean: 105 Progress Progress Note : Progress Note Patient seen and evaluated, resting comfortably in bed, no acute distress. Based on exam and symptoms, CT of head and neck ordered due to Eliquis use. [address] head negative for acute intracranial abnormality. CT neck negative for acute abnormality. CT of the neck does show cervical spondylosis and postsurgical changes. Results discussed with patient. Tylenol ordered for headache. Discharge instructions and return precautions provided. Diagnostic Imaging Diagonstic Imaging: CT Plain Films/CT/US/NM/MRI: c-spine, head Comments [facility], [place] NAME: [facility] REC#: [id number] PT STATUS: REG ER : 1965 PHYSICIAN: MADELEINE ELLER APRN ADMIT DATE: 11/22/22/ER Draft Date of Exam:11/22/22 CT HEAD/CERVICAL SPINE WO PROCEDURE: CT head and CT cervical spine without contrast. TECHNIQUE: Multiple contiguous axial images were obtained through the brain and cervical spine without the use of intravenous contrast. Sagittal and coronal reformations through the cervical spine were then performed. Auto Exposure Controls were utilized during the CT exam to meet ALARA standards for radiation dose reduction. INDICATION: Head and neck injury with head and neck pain. Patient states that she fell backwards and hit her head on the floor. COMPARISON: Comparison is made with prior head CT from 10/08/2021. FINDINGS: CT HEAD: Ventricles and sulci are stable. No sulcal effacement or midline shift is identified. No acute intra-axial or extra-axial hemorrhage is detected. Cisterns are patent. Visualized paranasal sinuses are clear. No depressed calvarial fracture is seen. IMPRESSION: No acute intracranial process is detected. CT CERVICAL SPINE: There is some straightening of the normal cervical lordotic curvature. Postop changes of ACDF with anterior plate and screws transfixing the C5-C6 level are noted. Hardware appears to be intact. Significant degenerative disc disease at the C3-C4 and C4-C5 levels are noted with disc space narrowing and prominent anterior osteophytes. No fractures are identified. Prevertebral tissues are within normal limits. Odontoid is intact. There is multilevel facet arthropathy, particularly the left-sided facets at C2-C3, C3-C4 and C4-C5 levels. IMPRESSION: Cervical spondylosis and postsurgical changes. No acute bony abnormality is detected. Dictated on workstation # [id number] Dict: 11/22/22 1807 Trans: 11/22/22 1814 [id number] Interpreted by: MILDRED MENDOZA MD Electronically signed by: Departure Impression Primary Impression: Head injury Qualified Codes: S09.90XA - Unspecified injury of head, initial encounter Additional Impression: Acute neck pain Disposition: HOME, SELF-CARE Condition: Stable Departure-Patient Inst. Decision time for Depature: 18:29 Referrals: [facility] (PCP) Primary Care Physician DIMITRIOS AVILES (Family) Primary Care Physician Patient Instructions: Head injury in adults Add. Discharge Instructions: Follow-up with your primary care provider. You may take 1000 mg of Tylenol every 8 hours as needed for pain. Return for severe headache or neck pain, vision changes, recurrent vomiting, difficulty with normal activities, abnormal behavior, difficulty walking, numbness, weakness, or any other new, concerning, or worsening symptoms. All discharge instructions reviewed with patient and/or family. Voiced understanding. MADELEINE ELLER APRN Nov 22, 2022 17:55
--- NOTE | 2022-11-22 18:15 | Diagnostic Imaging Report ---
PROCEDURE: CT head and CT cervical spine without contrast. TECHNIQUE: Multiple contiguous axial images were obtained through the brain and cervical spine without the use of intravenous contrast. Sagittal and coronal reformations through the cervical spine were then performed. Auto Exposure Controls were utilized during the CT exam to meet ALARA standards for radiation dose reduction. INDICATION: Head and neck injury with head and neck pain. Patient states that she fell backwards and hit her head on the floor. COMPARISON: Comparison is made with prior head CT from 10/08/2021. FINDINGS: CT HEAD: Ventricles and sulci are stable. No sulcal effacement or midline shift is identified. No acute intra-axial or extra-axial hemorrhage is detected. Cisterns are patent. Visualized paranasal sinuses are clear. No depressed calvarial fracture is seen. IMPRESSION: No acute intracranial process is detected. CT CERVICAL SPINE: There is some straightening of the normal cervical lordotic curvature. Postop changes of ACDF with anterior plate and screws transfixing the C5-C6 level are noted. Hardware appears to be intact. Significant degenerative disc disease at the C3-C4 and C4-C5 levels are noted with disc space narrowing and prominent anterior osteophytes. No fractures are identified. Prevertebral tissues are within normal limits. Odontoid is intact. There is multilevel facet arthropathy, particularly the left-sided facets at C2-C3, C3-C4 and C4-C5 levels. IMPRESSION: Cervical spondylosis and postsurgical changes. No acute bony abnormality is detected. Dictated by: Dictated on workstation # [id number]
[2022-11-22] MEDS ORDERED: ACETAMINOPHEN 500 MG TAB (TYLENOL) PO ONE (18:30)
[2022-11-22 18:40] VITALS: BP 105/68
== END 2022-11-22 18:40 | disposition home or self-care (01) ==
LOC: EDUNIT# 17:28 → ER 17:29
DX: S09.90XA Unspecified injury of head, initial encounter (principal); M47.812 Spondylosis without myelopathy or radiculopathy, cervical region; I48.91 Unspecified atrial fibrillation; Z79.01 Long term (current) use of anticoagulants; W01.198A Fall on same level from slipping, tripping and stumbling with subsequent striking against other object, initial encounter
CPT/HCPCS: 70450; 72125

== ENCOUNTER → 2023-03-20 | Outpatient (CLI) | payer MEDICAID ==
[~2023-03-20] MED LIST changes: -CELE-63 PO; +CELE-91 PO
[2023-03-20 13:40] LABS: BASOPHILS # (AUTO) 0.1 10^3/uL (0.0-0.1); BASOPHILS % (AUTO) 1 % (0-10); EOSINOPHILS # (AUTO) 0.2 10^3/uL (0.0-0.3); EOSINOPHILS % (AUTO) 2 % (0-10); HEMATOCRIT 40 % (35-52); HEMOGLOBIN 13.5 g/dL (11.5-16.0); LYMPHOCYTES # (AUTO) 2.4 10^3/uL (1.0-4.0); LYMPHOCYTES % (AUTO) 25 % (12-44); MEAN CORPUSCULAR HEMOGLOBIN 32 pg (25-34); MEAN CORPUSCULAR HGB CONC 34 g/dL (32-36); MEAN CORPUSCULAR VOLUME 93 fL (80-99); MEAN PLATELET VOLUME 9.6 fL (9.0-12.2); MONOCYTES # (AUTO) 0.8 10^3/uL (0.0-1.0); MONOCYTES % (AUTO) 8 % (0-12); NEUTROPHILS # (AUTO) 5.9 10^3/uL (1.8-7.8); NEUTROPHILS % (AUTO) 64 % (42-75); PLATELET COUNT 293 10^3/uL (130-400); WHITE BLOOD COUNT 9.2 10^3/uL (4.3-11.0)
[2023-03-20 14:01] LABS: ALBUMIN 4.2 GM/DL (3.2-4.5); BILIRUBIN,TOTAL 0.4 MG/DL (0.1-1.0); CALCIUM 9.6 MG/DL (8.5-10.1); CREATININE SERUM 0.77 MG/DL (0.60-1.30); POTASSIUM 3.9 MMOL/L (3.6-5.0); TOTAL PROTEIN 7.6 GM/DL (6.4-8.2)
== END ==
LOC: LAB 13:05
DX: F33.9 Major depressive disorder, recurrent, unspecified (principal); Z79.899 Other long term (current) drug therapy
CPT/HCPCS: 36415; 80053; 80061; 83036; 84443; 85025

== ENCOUNTER 2023-03-27 13:02 | Emergency (ER) | payer MEDICAID ==
[~2023-03-27] VITALS: Ht 175.2 cm; Wt 106.5 kg
--- NOTE | 2023-03-27 13:24 | ED Hip Pain/Injury ---
General Chief Complaint: Hip/Pelvic Problems Stated Complaint: FALL ON 03/06 | RT HIP PAIN Nursing Triage Note: PT AMB TO FT1 WITH CC OF R HIP PAIN. PT REPORTS FALL ON 03/06 DENIES HITTING HEAD OR LOC. PT STATES PAIN HAS INCREAED Source: patient Exam Limitations: no limitations History of Present Illness Date Seen by Provider: Mar 27, 2023 Time Seen by Provider: 13:21 Initial Comments Patient is a 57-year-old female who presents ED with right hip pain. Patient states she fell March 06. She states she was walking her dog missed a curb fell on both of her knees. She denies denies hitting her hip or lower back. She denies hitting her head. She states she has this sharp pain to her right posterior pelvis. This pain does not radiate. Only occurs with standing movement. Pain has stayed the same since her injury. She has been taken Tylenol. Started having some numbness and tingling in her right foot this morning. Patient denies of any bowel or urine cons or saddle paresthesia. She denies of any lateral hip or groin pain. She denies any clicking or popping. She denies any bruising swelling redness. No history of previous fracture. Patient denies abdominal pain chest pain shortness of breath or cough. Allergies and Home Medications Allergies Coded Allergies: prednisone (Unverified Adverse Reaction, Unknown, 04/03/20) makes her 'angry' Patient Home Medication List Home Medication List Reviewed: Yes Apixaban (Eliquis) 5 Mg Tablet, 5 MG PO BID, (Reported) Entered as Reported by: GLADIS BENITEZ on 03/15/21 0759 Aripiprazole (Aripiprazole) 10 Mg Tablet, 10 MG PO DAILY, (Reported) Entered as Reported by: MAGALI GUSMAN on 11/30/20 1420 Atorvastatin Calcium (Atorvastatin Calcium) 40 Mg Tablet, (Reported) Entered as Reported by: LEORA SUMMERS on 02/27/20 1449 Bupropion HCl (Bupropion Xl) 150 Mg Tab.er.24h, 150 MG PO DAILY, (Reported) Entered as Reported by: MAGALI GUSMAN on 11/30/20 1420 Celecoxib (Celecoxib) 200 Mg Capsule, 200 MG PO DAILY, (Reported) Entered as Reported by: MAGALI GUSMAN on 11/30/20 1420 Cetirizine HCl (Cetirizine HCl) 10 Mg Tablet, (Reported) Entered as Reported by: LEORA SUMMERS on 02/27/20 1449 Cyclobenzaprine HCl (Cyclobenzaprine HCl) 10 Mg Tablet, 10 MG PO HS, (Reported) Entered as Reported by: LEORA SUMMERS on 02/27/20 1449 Famotidine (Famotidine) 20 Mg Tablet, 20 MG PO DAILY, (Reported) Entered as Reported by: LEORA SUMMERS on 02/27/20 1449 Lisinopril/Hydrochlorothiazide (Lisinopril-Hctz 10-12.5 mg Tab) 1 Each Tablet, 1 EACH PO DAILY Prescribed by: ALBA BARKER on 09/29/21 1351 [place]-3/Dha/Epa/Fish Oil (Fish Oil 1,000 mg Softgel) 1 Each Capsule, 1 EACH PO DAILY, (Reported) Entered as Reported by: GLADIS BENITEZ on 03/15/21 0759 Pantoprazole Sodium (Pantoprazole Sodium) 40 Mg Tablet.dr, 40 MG PO BID, (Reported) Entered as Reported by: EMILIE CACERES on 10/09/21 0817 Review of Systems Constitutional: No chills, No diaphoresis, No malaise, No weakness EENTM: No ear pain, No blurred vision, No double vision Respiratory: No cough, No dyspnea on exertion Cardiovascular: No chest pain Gastrointestinal: No abdominal pain, No diarrhea, No nausea, No vomiting Genitourinary: No decreased output, No discharge Musculoskeletal: No back pain; joint pain, muscle pain, muscle stiffness Skin: No change in color All Other Systems Reviewed Negative Unless Noted: Yes Past Hwzjbct-Aqfwqo-Ujrbli Hx Patient Social History Tobacco Use?: No Substance use?: No Alcohol Use?: No Immunizations Up To Date Tetanus Booster (TDap): Unknown First/Initial COVID19 Vaccinat: VIDHYA IN 2020 Second COVID19 Vaccination Frank: VIDHYA IN 2020 Third COVID19 Vaccination Date: VIDHYA IN 2020 Seasonal Allergies Seasonal Allergies: No Past Medical History Surgery/Hospitalization HX: AFIB, HTN, DEPRESSION, ANXIETY Surgeries: Yes (cervical spine, colonoscopy, wrist) Appendectomy, Gallbladder, Orthopedic Respiratory: No Cardiac: Yes Atrial Fibrillation, Heart Murmur, High Cholesterol, Hypertension Neurological: No (bells palsy) Female Reproductive Disorders: Denies Sexually Transmitted Disease: No HIV/AIDS: No Genitourinary: No Gastrointestinal: No Musculoskeletal: Yes Chronic Back Pain Endocrine: No HEENT: No Cancer: No Psychosocial: Yes Anxiety, Depression Integumentary: No Physical Exam Vital Signs Vital Signs - First Documented 03/27/23 13:13 Temp 37.1 Pulse 68 Resp 16 B/P (MAP) 159/91 (113) Pulse Ox 98 O2 Delivery Room Air Capillary Refill : Less Than 3 Seconds Height, Weight, BMI Height: '" Weight: lbs. oz. kg; 34.00 BMI Method: General Appearance: No Apparent Distress, WD/WN HEENT: PERRL/EOMI, TMs Normal, Normal ENT Inspection, Pharynx Normal Neck: Full Range of Motion, Normal Inspection, Non Tender, Supple Cardiovascular: Regular Rate, Rhythm, No Edema, No Gallop, No JVD, No Murmur Respiratory: Chest Non Tender, Lungs Clear, Normal Breath Sounds, No Accessory Muscle Use, No Respiratory Distress Gastrointestinal: Normal Bowel Sounds, No Organomegaly, No Pulsatile Mass, Non Tender Back: Normal Inspection, No CVA Tenderness, Other (Right-sided lumbar paraspinal muscle tenderness. No swelling bruising or redness.) Extremity: Other (Right posterior pelvis tenderness. No crepitus or step-off. No lateral trochanteric tenderness. Normal active range of motion of the right hip. 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 Differential diagnosis hip fracture, hip strain, lumbar muscle strain, pelvic fracture. On exam tenderness to the right posterior pelvis. No direct impact with her fall on March 06. She denies hitting her head or loss of conscious. Pain is worse with movement with standing or bending. No bowel or urine cons or saddle paresthesia. Started having some numbness into the right foot today. CT scan the lumbar spine and x-ray of the right hip and pelvis was ordered. X-ray did not show any acute fracture. CT scan the lumbar spine negative for acute abnormality. She refused anything for pain. She has been taken Tylenol with some improvement. At this time this appears to be more muscle strain versus sprain. She has no pain in the groin. No greater trochanteric pain suggesting bursitis. She does have some numbness and tingling into the right leg with suggest potential bulging disc. recommend continue with her anti-inflammatories. Would likely benefit with physical therapy. Orthopedic outpatient follow-up for further evaluation. Further evaluation with MRI may be warranted if pain continues. If any worsening symptoms such as bowel or urine cons, saddle paresthesia, lower extremity weakness return back to ED. Impression Primary Impression: Hip pain Disposition: 01 HOME, SELF-CARE Condition: Stable Departure-Patient Inst. Decision time for Depature: 14:47 Referrals: MARIANO GALVEZ MD, DAVID M PA (PCP) Primary Care Physician Patient Instructions: Hip Pain Add. Discharge Instructions: Continue with your Tylenol. Suggest follow-up your primary care physician for f urther evaluation. If any worsening symptoms return back to ED. All discharge instructions reviewed with patient and/or family. Voiced understanding. FELISHA KIM Mar 27, 2023 13:23
--- NOTE | 2023-03-27 14:27 | Diagnostic Imaging Report ---
PROCEDURE: CT lumbar spine without contrast. TECHNIQUE: Multiple contiguous axial images were obtained through the lumbar spine without the use of intravenous contrast. Sagittal and coronal reformations were then performed. Auto Exposure Controls were utilized during the CT exam to meet ALARA standards for radiation dose reduction. INDICATION: Low back pain. Trauma. Fall. COMPARISON: None. FINDINGS: Grade 1 retrolisthesis of L5 on S1. Vertebral body heights are preserved. No fractures. Moderate degenerative endplate changes at L5-S1. Emgj-vj-ebdmjzkw scattered facet arthropathy. No CT evidence of high-grade spinal canal stenosis. Visualized pelvis is intact. No acute findings in the visualized paravertebral soft tissues. IMPRESSION: 1. No acute CT findings in the lumbar spine. 2. Ukpy-cw-gfbbuvsb spondylotic changes, as above. Dictated by: Dictated on workstation # [id number]
--- NOTE | 2023-03-27 14:40 | Diagnostic Imaging Report ---
INDICATION: Right-sided hip pain. TIME OF EXAM: 1:53 p.m. FINDINGS: An AP view of the pelvis and two views of the right hip were obtained. Femoroacetabular alignment is normal. Both femoral heads and necks are intact. Rami are intact. There is some spurring at the superolateral aspect of the acetabula bilaterally. Joint spaces are maintained. SI joints and symphysis are non-widened. IMPRESSION: No acute bony abnormality is detected. Dictated by: Dictated on workstation # [id number]
[2023-03-27 14:52] VITALS: BP 159/91
== END 2023-03-27 14:52 | disposition home or self-care (01) ==
LOC: EDUNIT# 13:02 → ER 13:04
DX: M25.551 Pain in right hip (principal); R20.0 Anesthesia of skin; R20.2 Paresthesia of skin; W18.30XA Fall on same level, unspecified, initial encounter
CPT/HCPCS: 72131; 99281

== ENCOUNTER 2023-04-15 18:40 | Emergency (ER) | payer MEDICAID ==
--- NOTE | 2023-04-15 18:50 | ED Fall/Injury ---
General Chief Complaint: Trauma-Non Activation Stated Complaint: FALL Source: patient, EMS Exam Limitations: no limitations History of Present Illness Date Seen by Provider: Apr 15, 2023 Time Seen by Provider: 18:38 Initial Comments 57-year-old female presents via [facility] after a fall. She states her shoestring got caught in the door causing her to fall onto her bottom. She is on Eliquis for history of atrial fibrillation. She denies hitting her head or losing consciousness. She complains of pain in her low back and coccyx region. She was able to get up and walk but with significant pain. No saddle anesthesia, loss of bowel or bladder control. All other systems reviewed and negative except documented per HPI. Voice recognition software was used to help create this chart Allergies and Home Medications Allergies Coded Allergies: prednisone (Unverified Adverse Reaction, Unknown, 04/03/20) makes her 'angry' Patient Home Medication List Home Medication List Reviewed: Yes Apixaban (Eliquis) 5 Mg Tablet, 5 MG PO BID, (Reported) Entered as Reported by: GLADIS BENITEZ on 03/15/21 0759 Aripiprazole (Aripiprazole) 10 Mg Tablet, 10 MG PO DAILY, (Reported) Entered as Reported by: MAGALI GUSMAN on 11/30/20 1420 Atorvastatin Calcium (Atorvastatin Calcium) 40 Mg Tablet, (Reported) Entered as Reported by: LEORA SUMMERS on 02/27/20 1449 Bupropion HCl (Bupropion Xl) 150 Mg Tab.er.24h, 150 MG PO DAILY, (Reported) Entered as Reported by: MAGALI GUSMAN on 11/30/20 1420 Celecoxib (Celecoxib) 200 Mg Capsule, 200 MG PO DAILY, (Reported) Entered as Reported by: MAGALI GUSMAN on 11/30/20 1420 Cetirizine HCl (Cetirizine HCl) 10 Mg Tablet, (Reported) Entered as Reported by: LEORA SUMMERS on 02/27/20 1449 Cyclobenzaprine HCl (Cyclobenzaprine HCl) 10 Mg Tablet, 10 MG PO HS, (Reported) Entered as Reported by: LEORA SUMMERS on 02/27/20 1449 Famotidine (Famotidine) 20 Mg Tablet, 20 MG PO DAILY, (Reported) Entered as Reported by: LEORA SUMMERS on 02/27/20 1449 Lisinopril/Hydrochlorothiazide (Lisinopril-Hctz 10-12.5 mg Tab) 1 Each Tablet, 1 EACH PO DAILY Prescribed by: ALBA BARKER on 09/29/21 1351 [place]-3/Dha/Epa/Fish Oil (Fish Oil 1,000 mg Softgel) 1 Each Capsule, 1 EACH PO DAILY, (Reported) Entered as Reported by: GLADIS BENITEZ on 03/15/21 0759 Pantoprazole Sodium (Pantoprazole Sodium) 40 Mg Tablet.dr, 40 MG PO BID, (Reported) Entered as Reported by: EMILIE CACERES on 10/09/21 0817 Review of Systems Review of Systems Constitutional: see HPI Past Gztkopu-Xhnpkj-Pueatk Hx Patient Social History Tobacco Use?: No Use of E-Cig and/or Vaping dev: No Substance use?: No Alcohol Use?: No Immunizations Up To Date Tetanus Booster (TDap): Unknown First/Initial COVID19 Vaccinat: VIDHYA IN 2020 Second COVID19 Vaccination Frank: VIDHYA IN 2020 Third COVID19 Vaccination Date: VIDHYA IN 2020 Seasonal Allergies Seasonal Allergies: No Past Medical History Surgery/Hospitalization HX: AFIB, HTN, DEPRESSION, ANXIETY Surgeries: Yes (cervical spine, colonoscopy, wrist) Appendectomy, Gallbladder, Orthopedic Respiratory: No Cardiac: Yes Atrial Fibrillation, Heart Murmur, High Cholesterol, Hypertension Neurological: No (bells palsy) Female Reproductive Disorders: Denies Sexually Transmitted Disease: No HIV/AIDS: No Genitourinary: No Gastrointestinal: No Musculoskeletal: Yes Chronic Back Pain Endocrine: No HEENT: No Cancer: No Psychosocial: Yes Anxiety, Depression Integumentary: No Physical Exam Vital Signs Vital Signs - First Documented 04/15/23 04/15/23 18:45 19:32 Temp 37.2 Pulse 89 Resp 18 B/P (MAP) 125/80 (95) Pulse Ox 98 O2 Delivery Room Air Capillary Refill : Height, Weight, BMI Height: '" Weight: lbs. oz. kg; 34.00 BMI Method: General Appearance: WD/WN, no apparent distress HEENT: normal ENT inspection, pharynx normal Neck: non-tender, supple Cardiovascular: regular rate, rhythm, no murmur Respiratory: chest non-tender, lungs clear, normal breath sounds, no respiratory distress, no accessory muscle use Gastrointestinal: normal bowel sounds, non tender, soft Back: normal inspection, vertebral tenderness (Mild tenderness palpation lumbar spine low and coccyx region. 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, no motor/sensory deficits, alert, normal mood/affect, oriented x 3 Skin: normal color, warm/dry Progress/Results/Core Measures Results/Orders My Orders Orders - MELE MIRANDA DO Ct Lumbar Spine Wo (04/15/23 18:47) Acetaminophen Tablet (Acetaminophen Ta (04/15/23 19:30) Medications Given in ED Current Medications Medications Dose Ordered Sig/Jenny Route Start Time Stop Time Status Last Admin Dose Admin Acetaminophen 1,000 mg ONCE ONCE PO 04/15/23 19:30 04/15/23 19:31 DC 04/15/23 19:31 1,000 MG Vital Signs/I&O 04/15/23 04/15/23 04/15/23 18:45 19:31 19:32 Temp 37.2 37.2 37.0 Pulse 89 68 Resp 18 16 B/P (MAP) 125/80 (95) 120/87 Pulse Ox 98 94 O2 Delivery Room Air Departure Communication (Admissions) Patient with lumbar, coccyx pain. No other injuries. CT scan negative for any acute findings. I have independently reviewed the images. Discharged in stable condition. Impression Primary Impression: Fall Qualified Codes: W19.XXXA - Unspecified fall, initial encounter Additional Impressions: Low back pain Qualified Codes: M54.50 - Low back pain, unspecified Coccygeal pain Disposition: 01 HOME, SELF-CARE Condition: Stable Departure-Patient Inst. Referrals: DIMITRIOS AVILES (PCP/Family) Primary Care Physician Patient Instructions: Preventing Falls ED, Low Back Pain ED Add. Discharge Instructions: No emergent medical conditions are identified for your symptoms. Use ibuprofen and Tylenol as needed for your pain. Your CT scan is negative. Walk around is much as possible. Your pain may be worse tomorrow than it is today. Return to the emergency department for any severe concerns. Follow-up to primary doctor for any nonemergent needs. All discharge instructions reviewed with patient and/or family. Voiced understanding. MELE MIRANDA DO Apr 15, 2023 18:50
--- NOTE | 2023-04-15 19:24 | Diagnostic Imaging Report ---
PROCEDURE: CT lumbar spine without contrast. TECHNIQUE: Multiple contiguous axial images were obtained through the lumbar spine without the use of intravenous contrast. Sagittal and coronal reformations were then performed. Auto Exposure Controls were utilized during the CT exam to meet ALARA standards for radiation dose reduction. INDICATION: Low back and coccyx pain after fall. COMPARISON: Prior examination from 03/27/2023. FINDINGS: The alignment of the lumbar spine is grossly normal. The vertebral body heights are well maintained. There is no spondylolysis or spondylolisthesis. There is some lower lumbar hypertrophic degenerative facet disease. There is a vacuum disc at L5-S1. At L3-L4 there is annular bulging, facet disease and thickening of the ligamentum flavum. There is moderate spinal stenosis with encroachment upon the lateral recess, bilaterally. There is moderate bilateral neural foraminal encroachment. At L4-L5 there is annular bulging, facet disease and thickening of the ligamentum flavum. There is moderate spinal stenosis with encroachment on the lateral recess, bilaterally, and moderate bilateral neural encroachment. At L5-S1 There is some encroachment on the right lateral recess. There is moderate bilateral neural foraminal encroachment. The aorta is nonaneurysmal. Kidneys are normal in appearance. There is no other focal soft tissue abnormality. IMPRESSION: Lower lumbar spondylosis and degenerative disc disease without acute fracture or malalignment. Dictated by: Dictated on workstation # [id number]
[2023-04-15] MEDS ORDERED: ACETAMINOPHEN 500 MG TABLET PO ONE (19:30)
[2023-04-15 19:32] VITALS: BP 120/87
== END 2023-04-15 19:34 | disposition home or self-care (01) ==
LOC: EDUNIT# 18:40 → ER 18:41
DX: M54.50 Low back pain, unspecified (principal); M53.3 Sacrococcygeal disorders, not elsewhere classified; I48.91 Unspecified atrial fibrillation; Z79.01 Long term (current) use of anticoagulants; W18.30XA Fall on same level, unspecified, initial encounter
CPT/HCPCS: 72131